=== PATIENT | male | born 1945 | race Caucasian/White ===

== ENCOUNTER 2017-12-17 11:50 | Emergency (ER) | payer MEDICARE, OTHER ==
[2017-12-17 11:58] VITALS: TEMP 98.6
[2017-12-17] MEDS ORDERED: KETOROLAC 30 MG/ML 1 ML VIAL IVP STA (12:18)
[2017-12-17] MEDS ORDERED: MORPHINE SULFATE 4MG/4ML SYRG IV STA (12:18)
[2017-12-17] MEDS ORDERED: DEXAMETHASONE SOD PHOSPHATE 10 MG/ML 1 ML VIAL IV STA (12:18)
[2017-12-17] MEDS ORDERED: SODIUM CHLORIDE 0.9% 1,000 ML IV STA (12:18)
[2017-12-17] MEDS ORDERED: diphenhydrAMINE 50 MG/ML 1 ML VIAL IVP STA ×2 (12:18→14:26)
[2017-12-17] MEDS ORDERED: SODIUM CHLORIDE 0.9% 500 ML IV STA (12:18)
[2017-12-17] MEDS ORDERED: RX INFO: IV CONTRAST WAS GIVEN 1 EACH MISC MISCELLANE PRN ×2 (12:19→14:30)
--- NOTE | 2017-12-17 12:22 | ED ---
General Adult HPI - General Chief complaint: Headache Stated complaint: Headache x' 3 weeks Time Seen by Provider: 12/17/17 12:08 Source: patient Mode of arrival: wheelchair Limitations: no limitations - History of Present Illness Initial comments: 72-year-old male presents for evaluation of headache. Patient was seen by his primary care physician, and instructed to present to the emergency department for evaluation and plan for CT with and without contrast. Patient has had headache for the past 2 weeks which has been severe. Gradual onset. Worse on the left frontal region. Patient does have chronic headache history, he has had tried brain injury and zygomatic reconstruction secondary to injuries in [place]. He does deal with headaches as well as peripheral neuropathy. He is currently taking Lyrica, he is prescribed [place] but chooses not to take this on a regular basis. He previously followed with neurology, however recently he has not seen a neurologist. Denies any fever or chills. No nausea vomiting. He does have some vision and photophobia. Headache is somewhat similar in character to his baseline headache although more severe. - Related Data Home Medications Medication Instructions Recorded Confirmed Aspirin EC [Ecotrin] 325 mg PO DAILY 12/17/17 12/17/17 Celecoxib [CeleBREX] 200 mg PO DAILY 12/17/17 12/17/17 Cyclobenzaprine [Flexeril] 10 mg PO DAILY 12/17/17 12/17/17 DULoxetine HCL [Cymbalta] 60 mg PO DAILY 12/17/17 12/17/17 Ezetimibe [Zetia] 10 mg PO DAILY 12/17/17 12/17/17 Levothyroxine Sodium [Synthroid] 50 mcg PO DAILY 12/17/17 12/17/17 Niacin 500 mg PO BID 12/17/17 12/17/17 [place]-3 Acid Ethyl Esters [Lovaza] 1 gm PO BID 12/17/17 12/17/17 Pregabalin [Lyrica] 150 mg PO BID 12/17/17 12/17/17 Rosuvastatin [Crestor] 10 mg PO DAILY 12/17/17 12/17/17 Ubidecarenone [Co Q-10] 300 mg PO DAILY 12/17/17 12/17/17 traZODone HCL 150 mg PO HS 12/17/17 12/17/17 Allergies Allergy/AdvReac Type Severity Reaction Status Date / Time No Known Allergies Allergy Verified 12/17/17 12:11 Review of Systems ROS Statement: Those systems with pertinent positive or pertinent negative responses have been documented in the HPI. ROS Other: All systems not noted in ROS Statement are negative. Past Medical History Past Medical History: Cancer, Myocardial Infarction (MT) Additional Past Medical History / Comment(s): 3 TBI's, skin cancer, prostate cancer, 3 MT's with stents, hernia, steel plate in head left zygomatic arch History of Any Multi-Drug Resistant Organisms: None Reported Past Surgical History: Coronary Bypass/CABG, Heart Catheterization With Stent, Hernia Repair, Prostate Surgery Additional Past Surgical History / Comment(s): right knee Past Psychological History: No Psychological Hx Reported Smoking Status: Never smoker Past Alcohol Use History: None Reported Past Drug Use History: None Reported General Exam Limitations: no limitations General appearance: alert, in no apparent distress, appears intoxicated Eye exam: Present: normal appearance, PERRL, EOMI ENT exam: Present: normal exam Neck exam: Present: normal inspection. Absent: tenderness, meningismus Respiratory exam: Present: normal lung sounds bilaterally. Absent: respiratory distress, wheezes Cardiovascular Exam: Present: regular rate, normal rhythm GI/Abdominal exam: Present: soft. Absent: distended, tenderness, guarding Extremities exam: Present: normal inspection, full ROM, normal capillary refill. Absent: calf tenderness Neurological exam: Present: alert, oriented X3, CN II-XII intact. Absent: motor sensory deficit Psychiatric exam: Present: normal affect, normal mood Skin exam: Present: warm, dry, intact. Absent: cyanosis, diaphoretic Course Vital Signs 12/17/17 12/17/17 12/17/17 11:53 14:25 16:00 Temperature 98.6 F Pulse Rate 69 64 66 Respiratory 18 16 16 Rate Blood Pressure 131/70 119/65 128/68 O2 Sat by Pulse 98 97 97 Oximetry - Reevaluation(s) Reevaluation #1: 12/17/17 16:04 On reevaluation, patient's headache is improved. Medical Decision Making - Medical Decision Making 72-year-old male with chronic headache, presents from outpatient office for evaluation of worsening headache. Patient is well-appearing, normal vital signs , nonfocal neurologic exam. Patient was instructed to present to the emergency department for concern of aneurysm. History is not consistent with aneurysmal bleed. However CT and CT angiography is obtained, brain CT shows chronic right occipital infarct with encephalomalacia. Patient has been told in the past that he has had a CVA. Patient is also concerned about some left eye pain and blurry vision, this does correspond with his right occipital infarct, intraocular pressures are checked just to be sure there is no component of glaucoma, right eye is 14, left eye is [address] angiography negative for aneurysmal change, no significant signs of stenosis. Patient given headache medication and on reevaluation is feeling better. He was previously seen by neurology for his chronic headaches, he will be given outpatient neurology follow-up. Return to the emergency department with worsening or changing headache. ESR and CRP are negative - Lab Data Result diagrams: 12/17/17 13:00 12/17/17 13:00 Lab Results 12/17/17 12/17/17 Range/Units 13:00 13:00 WBC 5.1 (3.8-10.6) k/uL RBC 4.92 (4.30-5.90) m/uL Hgb 15.3 (13.0-17.5) gm/dL Hct 45.5 (39.0-53.0) % MCV 92.4 (80.0-100.0) fL MCH 31.1 (25.0-35.0) pg MCHC 33.7 (31.0-37.0) g/dL RDW 12.7 (11.5-15.5) % Plt Count 239 (150-450) k/uL Neutrophils % 50 % Lymphocytes % 37 % Monocytes % 6 % Eosinophils % 2 % Basophils % 1 % Neutrophils # 2.5 (1.3-7.7) k/uL Lymphocytes # 1.9 (1.0-4.8) k/uL Monocytes # 0.3 (0-1.0) k/uL Eosinophils # 0.1 (0-0.7) k/uL Basophils # 0.0 (0-0.2) k/uL ESR 6 (0-15) mm/hr Sodium 145 (137-145) mmol/L Potassium 5.3 H (3.5-5.1) mmol/L Chloride 105 (98-107) mmol/L Carbon Dioxide 27 (22-30) mmol/L Anion Gap 13 mmol/L BUN 24 H (9-20) mg/dL Creatinine 0.70 (0.66-1.25) mg/dL Est GFR (CKD-EPI)AfAm >90 (>60 ml/min/1.73 sqM) Est GFR (CKD-EPI)NonAf >90 (>60 ml/min/1.73 sqM) Glucose 90 (74-99) mg/dL Calcium 10.0 (8.4-10.2) mg/dL Total Bilirubin 0.5 (0.2-1.3) mg/dL AST 32 (17-59) U/L ALT 35 (21-72) U/L Alkaline Phosphatase 59 (38-126) U/L C-Reactive Protein <5.0 (<10.0) mg/L Total Protein 7.0 (6.3-8.2) g/dL Albumin 4.4 (3.5-5.0) g/dL Disposition Clinical Impression: Headache Disposition: HOME SELF-CARE Instructions: Migraine Headache (ED) Referrals: Callie Alcaraz DO [REFERRING] - 1-2 days Xiomara Felix MD [STAFF PHYSICIAN] - 1-2 days Time of Disposition: 16:07
[2017-12-17 13:12] LABS: Basophils % (A) 1 %; Eosinophils # (A) 0.1 k/uL (0-0.7); Eosinophils % (A) 2 %; HCT 45.5 % (39.0-53.0); HGB 15.3 gm/dL (13.0-17.5); Lymphocytes # (A) 1.9 k/uL (1.0-4.8); Lymphocytes % (A) 37 %; MCH 31.1 pg (25.0-35.0); MCHC 33.7 g/dL (31.0-37.0); MCV 92.4 fL (80.0-100.0); Mean Platelet Volume 7.6; Monocytes # (A) 0.3 k/uL (0-1.0); Monocytes % (A) 6 %; Neutrophils # (A) 2.5 k/uL (1.3-7.7); Neutrophils % (A) 50 %; Platelet Count 239 k/uL (150-450); RBC 4.92 m/uL (4.30-5.90); RDW 12.7 % (11.5-15.5); WBC 5.1 k/uL (3.8-10.6)
[2017-12-17 13:24] LABS: ALT 35 U/L (21-72); AST 32 U/L (17-59); Albumin 4.4 g/dL (3.5-5.0); Alkaline Phosphatase 59 U/L (38-126); Anion Gap 13 mmol/L; Blood Urea Nitrogen 24 mg/dL (9-20); C Reactive Protein <5.0 mg/L (<10.0); Carbon Dioxide 27 mmol/L (22-30); Chloride 105 mmol/L (98-107); Glucose 90 mg/dL (74-99); Potassium 5.3 mmol/L (3.5-5.1); Sodium 145 mmol/L (137-145); Total Bilirubin 0.5 mg/dL (0.2-1.3)
[2017-12-17 14:01] LABS: Erythrocyte Sedimentation Rate 6 mm/hr (0-15)
[2017-12-17 14:26] VITALS: RESP 16
[2017-12-17] MEDS ORDERED: METOCLOPRAMIDE 5 MG/ML 2 ML VIAL IVP STA (14:26)
[2017-12-17] MEDS ORDERED: fentaNYL (PF) 50 MCG/ML 2 ML AMP IVP STA (14:27)
--- NOTE | 2017-12-17 15:17 | CT ---
EXAMINATION TYPE: CT brain wo con DATE OF EXAM: 12/17/2017 COMPARISON: NONE HISTORY: headache x3 weeks CT DLP: 1145.54 mGycm Automated exposure control for dose reduction was used. Helical imaging through the brain FINDINGS: There is no hemorrhage or hydrocephalus present. Encephalomalacia present in the medial aspect of the right occipital lobe is compatible with chronic infarct. Calvarium is intact. Inflammatory changes p resent within the maxillary sinus on the right. IMPRESSION: SINUS DISEASE. CHRONIC RIGHT OCCIPITAL INFARCT. NO ACUTE BRAIN ABNORMALITY.
[2017-12-17] MEDS ORDERED: PROPARACAINE 0.5% OPHTH DROPS 15 ML BTL BOTH EYES STA (15:23)
--- NOTE | 2017-12-17 15:47 | CT ---
EXAMINATION TYPE: CT angio head neck DATE OF EXAM: 12/17/2017 HISTORY: headache x3 weeks COMPARISON: CT head earlier today. CT DLP: 459.62 mGycm. Automated Exposure Control for Dose Reduction was Utilized. TECHNIQUE: CTA scan of the neck is performed with IV Contrast, patient injected with 65 mL of Isovue 370, axial images are obtained, coronal and sagittal reformatted images are reviewed. Three-D recons tructed images are created on an independent workstation and reviewed. FINDINGS: Carotid/Vascular Structures: There is partial visualization of sternal wires and mediastinal clips fr om CABG procedure. There is normal three-vessel origin from aortic arch. There is no significant plaq ue or stenosis in brachiocephalic or subclavian arteries bilaterally. The right common carotid artery shows normal origin from right brachiocephalic artery. There is moderate peripheral mixed plaque at right carotid bulb without significant stenosis identified. There is mild calcified plaque extending into proximal internal carotid artery. No significant stenosis in common or internal carotid arteries is present bilaterally. There is fairly moderate calcified peripheral plaque at left carotid bulb. There is no significant st enosis in left common or internal carotid arteries There is codominant vertebral basilar system. Vertebral arteries are patent to basilar junction. Ther e are patent posterior communicating arteries felt present bilaterally. No aneurysmal change or signi ficant stenosis is seen. There is short segment but believed patent anterior communicating artery. No significant focal stenosis or aneurysmal change is seen. Other: There is fairly moderate multilevel spurring in the cervical spine. There is multilevel uncove rtebral facet arthropathy identified. There is borderline enlarged 1.2 x 0.9 cm anterior superior mediastinal lymph node axial image 114. There is persistent vague area of low-attenuation consistent with age-indeterminate infarct right occ ipital region axial image 27. There is small caliber right maxillary sinus with moderate eccentric mucosal thickening. IMPRESSION: 1. No significant stenosis in common or internal carotid arteries bilaterally. Mild to moderate carot id bulb plaque is present. 2. No aneurysmal change at level of [place].
[2017-12-17 16:01] VITALS: BP 128/68; PULSE 66
== END 2017-12-17 16:30 | disposition home or self-care (01) ==
LOC: EC 11:50 → EEVIPCON 11:50 → EC 16:30
DX: R51 Headache (principal); H53.149 Visual discomfort, unspecified; G93.89 Other specified disorders of brain; H57.12 Ocular pain, left eye; H53.8 Other visual disturbances; I25.2 Old myocardial infarction; Z85.828 Personal history of other malignant neoplasm of skin; Z85.46 Personal history of malignant neoplasm of prostate; Z79.82 Long term (current) use of aspirin; Z79.899 Other long term (current) drug therapy
CPT/HCPCS: 36415; 80053; 85652; 85025; 86140; 70496; 70450; 70498; 99284; 96374; 96375 ×5; 96376; 96361; J1200; J1100; J2765; J3010; J1885; Q9967; J2270

== ENCOUNTER → 2018-03-10 | Outpatient (CLI) | payer MEDICARE, OTHER ==
[2018-03-06 16:24] VITALS: BMI 30.5
[2018-03-10 13:39] VITALS: BP 113/70; PULSE 75; RESP 18
--- NOTE | 2018-03-19 12:41 | P.PAINCN ---
History of Present Illness - Reason for Consult Consult date: 03/10/18 - Chief Complaint Low back pain - History of Present Illness This is a 72-year-old patient referred by neurologist for chronic pain in lumbar spine with radiation to bilateral lower extremities. Patient states that pain began over 5 years ago for reasons he cannot identify, pain is 7/10 in severity and describes it as throbbing aching, and shooting into his bilateral lower extremities. Patient states that walking for long distances, standing, and is even minimal activity exacerbate his low back pain. With regards to his radicular signs and symptoms, he states that he gets shooting pains into his bilateral lower extremities into the back of his calves multiple times a day that he describes as painful and at times debilitating. Patient denies adverse drug effects from medications. Patient also denies new-onset weakness, bowel/bladder incontinence, or any other signs or symptoms of cauda equina syndrome. There are no signs of acute intoxication, and no indications of medication diversion or overuse. Patient does not have an MRI, or lumbar spine x-rays to be reviewed. Patient has not had surgery. Patient has not had injections previously. Patient has not had physical therapy recently. In addition to above, 13-point review of systems is also negative for chest pain , shortness of breath, changes in vision, changes in hearing, new onset weakness , abdominal pain, diarrhea, extreme fatigue, malaise, fever, skin changes, homicidal or suicidal ideation, or bowel or bladder incontinence. Vital Signs: Reviewed in EMR Gen: WDWN, AAOx3, NAD HEENT: NCAT, EOMI, hearing grossly normal Pulm: resp unlabored Abd: soft, NT, ND Neck: supple, trachea midline ROM in flexion cervical spine: Normal ROM in extension cervical spine: Normal Cervical paravertebral tenderness: Normal Cervical Facet tenderness: Negative Spurling's: Negative bilateral Upper extremity: decreased lockstitch sleeve maker strength, decreased shoulder abduction ROM, and decreased elbow flexion/extension secondary to pain ROM in flexion lumbar spine: Limited ROM in extension lumbar spine: Limited Lumbar paravertebral tenderness: Tenderness to palpation appreciated Facet loading: Positive bilateral L4 and L5 SI joint tenderness: Negative Niels's test: Negative Straight leg raise: Positive bilateral 45 Lower extremity: decreased ROM dorsiflexion/plantarflexion strength, hip flexion/extension, and knee flexion/extension secondary to pain Neuro: CN II-XII grossly intact, muscle strength lower extremities PRESERVED Assessment: 1. Lumbar radiculopathy 2. Lumbar spondylosis without myelopathy 3. Lumbar degenerative disc disease Plan: 1. Explanation: Opioid and psychological risk scores were reviewed. Diagnoses , prognoses, and multiple treatment options including but not limited to physical therapy, interventional therapies, adjuvant medical therapies, narcotic medication therapies, and surgery were discussed with the patient and all questions were answered to the patient's satisfaction. 2. Opioid agreement: Patient signed narcotic agreement, and was orally counseled to not overuse, abuse, divert, or cell medications, and to take them as prescribed by only 1 healthcare provider. The patient was also counseled to take medications as prescribed by only 1 healthcare provider and to store opioid medications in the safe and preferably locked location. Patient was also counseled against driving or operating heavy equipment while using narcotic medications and also not use alcohol or any illicit or recreational drugs. The patient verbalized understanding that lack of compliance with any of the above and likely result in failure to renew narcotic prescriptions, possible discharge from the clinic, and possible legal ramifications thereafter if indicated. 3. Counseling: The patient was counseled extensively on SMOKING CESSATION, BODY MASS INDEX, EXERCISE. Specifically, the patient was instructed regarding the importance of smoking cessation, weight control, and exercise in the context of both chronic pain and overall health. 4. Procedures: Lumbar epidural steroid injection in 1 week 5. Consultations: No consultation at this time 6. Investigations: As reviewed and appropriate with patient history 7. Medications: No medications at this time 8. Disposition: Lumbar epidural steroid injection 1 week PQRS measures: 1-Patient's medications are documented in the chart. 2-Tobacco use is positive/negative, counseling given 3-Patient has not had a pneumococcal vaccine. 4-Advanced care planning discussed, patient unable to give. 5-Opioid contract signed with the patient. 6-Pain positive, follow-up visit or procedure scheduled 7-Patient's blood pressure measured and documented, and patient will follow up with the primary care due to hypertension. 8-Patient's weight was measured, and body mass index above the normal limits, and counseling was done. Patient instructed to follow up with PCP. 9-Patient was not identified as an unhealthy alcohol user. Past Medical History Past Medical History: Cancer, Hearing Disorder / Deafness, Myocardial Infarction (VT), Musculoskeletal Disorder, Osteoarthritis (OA), Thyroid Disorder Additional Past Medical History / Comment(s): 3 TBI's, skin cancer, prostate cancer, 3 VT's with stents, steel plate in head left zygomatic arch, peripheral neuropathy, DDD, mostly deaf even w/hearing aids Last Myocardial Infarction Date:: unknown History of Any Multi-Drug Resistant Organisms: None Reported Past Surgical History: Coronary Bypass/CABG, Heart Catheterization With Stent, Hernia Repair, Prostate Surgery Additional Past Surgical History / Comment(s): arthroscopy right knee, 5 way bypass 2003, prostatectomy 2006 Past Anesthesia/Blood Transfusion Reactions: No Reported Reaction, Blood Transfusion Reaction Additional Past Anesthesia/Blood Transfusion Reaction / Comm: high ammonia levels after transfusion-had tx. for Date of Last Stent Placement:: unknown Smoking Status: Never smoker - Past Family History Mother Family Medical History: No Reported History Medications and Allergies Home Medications Medication Instructions Recorded Confirmed Type Aspirin EC [Ecotrin] 325 mg PO DAILY 12/17/17 03/18/18 History Celecoxib [CeleBREX] 200 mg PO DAILY 12/17/17 03/18/18 History Cyclobenzaprine [Flexeril] 10 mg PO HS 12/17/17 03/18/18 History DULoxetine HCL [Cymbalta] 60 mg PO DAILY 12/17/17 03/18/18 History Ezetimibe [Zetia] 10 mg PO MOWEFR 12/17/17 03/18/18 History Levothyroxine Sodium [Synthroid] 50 mcg PO HS 12/17/17 03/18/18 History [place]-3 Acid Ethyl Esters [Lovaza] 1 gm PO BID 12/17/17 03/18/18 History Pregabalin [Lyrica] 150 mg PO BID 12/17/17 03/18/18 History Rosuvastatin [Crestor] 10 mg PO DAILY 12/17/17 03/18/18 History Ubidecarenone [Co Q-10] 200 mg PO DAILY 12/17/17 03/18/18 History traZODone HCL 150 mg PO HS 12/17/17 03/18/18 History Cholecalciferol [Vitamin D3] 1,000 unit PO DAILY 03/06/18 03/18/18 History Cinnamon Bark [Cinnamon] 500 mg PO DAILY 03/06/18 03/18/18 History Folic Acid 1 mg PO DAILY 03/06/18 03/18/18 History Garlic 1 each PO DAILY 03/06/18 03/18/18 History Magnesium 400 mg PO DAILY 03/06/18 03/18/18 History Turmeric Root Extract [Turmeric] 400 mg PO DAILY 03/06/18 03/18/18 History Vitamin B Complex 1 each PO DAILY 03/06/18 03/18/18 History Docusate [Colace] 100 mg PO DAILY 03/16/18 03/18/18 History HYDROcodone/APAP 10-325MG [[place] 1 tab PO TID PRN 03/16/18 03/18/18 History 10-325] Polyethylene Glycol 3350 [Miralax] 17 gm PO DAILY 03/16/18 03/18/18 History Allergies Allergy/AdvReac Type Severity Reaction Status Date / Time No Known Allergies Allergy Verified 03/18/18 07:44 PQRS Measure Charge Sheet PQRS Narrative: Smoking Status Never smoker Do You Want the Pneumonia Yes Vaccine AT THIS TIME? Blood Pressure 113/70 Pain Intensity [Generalized] 10 Scale Used Numeric (1 - 10) Hx Alcohol Use (MH) No Home Medications: Ambulatory Orders Aspirin EC [Ecotrin] 325 mg PO DAILY 12/17/17 Celecoxib [CeleBREX] 200 mg PO DAILY 12/17/17 Cyclobenzaprine [Flexeril] 10 mg PO HS 12/17/17 DULoxetine HCL [Cymbalta] 60 mg PO DAILY 12/17/17 Ezetimibe [Zetia] 10 mg PO MOWEFR 12/17/17 Levothyroxine Sodium [Synthroid] 50 mcg PO HS 12/17/17 [place]-3 Acid Ethyl Esters [Lovaza] 1 gm PO BID 12/17/17 Pregabalin [Lyrica] 150 mg PO BID 12/17/17 Rosuvastatin [Crestor] 10 mg PO DAILY 12/17/17 Ubidecarenone [Co Q-10] 200 mg PO DAILY 12/17/17 traZODone HCL 150 mg PO HS 12/17/17 Cholecalciferol [Vitamin D3] 1,000 unit PO DAILY 03/06/18 Cinnamon Bark [Cinnamon] 500 mg PO DAILY 03/06/18 Folic Acid 1 mg PO DAILY 03/06/18 Garlic 1 each PO DAILY 03/06/18 Magnesium 400 mg PO DAILY 03/06/18 Turmeric Root Extract [Turmeric] 400 mg PO DAILY 03/06/18 Vitamin B Complex 1 each PO DAILY 03/06/18 Docusate [Colace] 100 mg PO DAILY 03/16/18 HYDROcodone/APAP 10-325MG [[place] 10-325] 1 tab PO TID PRN 03/16/18 Polyethylene Glycol 3350 [Miralax] 17 gm PO DAILY 03/16/18
== END | disposition home or self-care (01) ==
LOC: PNWHC3 12:06
PROVIDERS: ATTEND Anesthesiology
DX: M51.16 Intervertebral disc disorders with radiculopathy, lumbar region (principal); M47.26 Other spondylosis with radiculopathy, lumbar region; I25.2 Old myocardial infarction; M19.90 Unspecified osteoarthritis, unspecified site; Z95.1 Presence of aortocoronary bypass graft; Z79.82 Long term (current) use of aspirin; Z79.1 Long term (current) use of non-steroidal anti-inflammatories (NSAID); Z79.899 Other long term (current) drug therapy; Z98.890 Other specified postprocedural states
CPT/HCPCS: 99211

== ENCOUNTER 2018-03-18 06:29 | Day surgery (SDC) | payer OTHER ==
[2018-03-16 16:38] VITALS: BMI 29.8
[~2018-03-18 06:29] MED LIST: LACTATED RINGERS 1,000 ML IV SCH
[2018-03-18 07:35] VITALS: RESP 16; TEMP 98.1
[2018-03-18] MEDS ORDERED: LIDOCAINE 1% 20 ML VIAL (10MG/ML) FOR IV START INTRADERMA ONE (08:01)
--- NOTE | 2018-03-18 08:28 | P.PCN ---
Date of Procedure: 03/18/18 Procedure(s) Performed: PREOPERATIVE DIAGNOSIS: 1- Lumbar Degenerative Disc Diseases 2-Lumbar spinal stenosis POSTOPERATIVE DIAGNOSIS: 1-Lumber Degenerative Disc Diseases 2-Lumbar spinal stenosis PROCEDURE 1. Lumbar epidural steroid injection under fluoroscopic guidance at the L4-5 level. 2. Lumbar epidurogram. ANESTHESIA: Local with 1% lidocaine 3 ml and , moderate sedation with intravenous Versed 2 mg ,and fentanyle 100 Mcg EBL: Minimal PROCEDURE INDICATION: The patient with low back pain and radiculitis symptoms unresponsive to conservative treatment. Fluoroscopy was used to optimize visualization of the needle placement and to maximize safety. PROCEDURE DESCRIPTION / TECHNIQUE: The patient was seen and identified in the preoperative area. Risks, benefits , complications including but not limited to infections ,bleeding ,allergic reaction to the medications ,nerve damage and not complete pain releife , and alternatives were discussed with the patient. The patient agreed to proceed with the procedure and signed the consent. IV was started, and vital signs were stable. Patient was taken to the OR and time out was completed. The patient was placed in the prone position on procedure table and a pillow was placed under the abdomen to reduce lumbar lordosis. The lumbosacral area was prepped and draped in the usual sterile fashion.ere closely monitored during the procedure. Conscious sedation was used during the procedure to decrease patients anxiety. Vital signs was monitered during the entire procedure. Using anterior-posterior fluoroscopy, the L4-5 interlaminar space was identified and the skin over this site was marked and then infiltrated with 1% lidocaine subcutaneously. Subsequently, a 20-gauge Tuohy epidural needle was inserted and advanced toward the epidural space using the ``Loss of resistance technique and guided by AP and lateral fluoroscopy. The correct needle position in the epidural space was verified with the injection of 2 mL of the water soluble contrast dye Isovue 200 contrast and observing an excellent epidurogram with the epidural spread of the dye, after negative aspiration for blood and CSF and in the absence of paresthesias. Again after negative aspiration, a 6 ml mixture containing 80 mg Depo-Medrol, and 2 ml of preservative free Normal Saline, and 2 ml of preservative free lidocaine 1% solution was injected and a washout of epidurogram was seen. Needle was withdrawn intact, skin was cleansed, and bandages were applied. COMPLICATIONS: None DISPOSITION / PLANS: The patient was placed in a supine position and transferred to the recovery area in a stable condition for observation. There was no evidence of lower extremity motor or sensory deficit after the procedure. Patient was discharged from the recovery room after meeting discharge criteria. Home discharge instructions were given to the patient by the staff. The patient was reexamined prior to discharge. The patient will schedule a follow up in the clinic in 2-4 weeks.
[2018-03-18] MEDS ORDERED: IV FLUID CONTINUATION 1,000 ML IV ONE (08:35)
[2018-03-18 09:08] VITALS: BP 134/83; PULSE 64
--- NOTE | 2018-03-18 10:36 | FL ---
Fluoroscopy HISTORY: Pain 1 seconds fluoroscopy time supplied to the referring clinician. 1 intraoperative C-arm images docume nt the procedure. See dictated report from anesthesia.
== END 2018-03-18 09:40 | disposition home or self-care (01) ==
LOC: ORPAIN 06:29
PROVIDERS: ATTEND Specialist
DX: M51.36 Other intervertebral disc degeneration, lumbar region (principal); M48.061 Spinal stenosis, lumbar region without neurogenic claudication; Z95.1 Presence of aortocoronary bypass graft; Z79.899 Other long term (current) drug therapy
CPT/HCPCS: 62323; J2250; J1030; J3010; Q9966

== ENCOUNTER 2018-04-02 09:23 | Day surgery (SDC) | payer OTHER ==
[2018-03-27 15:38] VITALS: BMI 29.8
[2018-04-02 11:02] VITALS: RESP 20; TEMP 98
--- NOTE | 2018-04-02 11:14 | P.PCN ---
Date of Procedure: 04/02/18 Surgeon: Vikash Allan Description of Procedure: PREOPERATIVE DIAGNOSIS: Lumbar spinal stenosis, bilateral lumbar radiculopathy POSTOPERATIVE DIAGNOSIS: Same PROCEDURE Lumbar epidural steroid injection under fluoroscopic guidance at the L4 5 level. ANESTHESIA: Local with 1% lidocaine 3 ml and IV sedation with Versed 2 mg EBL: Minimal PROCEDURE INDICATION: This is a very pleasant 72-year-old gentleman with a history of bilateral lumbar radicular pain secondary to lumbar spinal stenosis presents today for repeat of lumbar epidural steroid injection. This is his second injection. He reports that he received significant benefit from his first injection although he does still have symptoms. PROCEDURE DESCRIPTION / TECHNIQUE: The patient was seen and identified in the preoperative area. Risks, benefits , complications including but not limited to infections ,bleeding ,allergic reaction to the medications ,nerve damage and not complete pain relief , and alternatives were discussed with the patient. The patient agreed to proceed with the procedure and signed the consent. IV was started, and vital signs were stable. Patient was taken to the OR and time out was completed. The patient was placed in the prone position on procedure table and a pillow was placed under the abdomen to reduce lumbar lordosis. The lumbosacral area was prepped and draped in the usual sterile fashion.ere closely monitored during the procedure. Conscious sedation was used during the procedure to decrease patients anxiety. Vital signs was monitered during the entire procedure. Using anterior-posterior fluoroscopy, the L4 5 interlaminar space was identified and the skin over this site was marked and then infiltrated with 1% lidocaine subcutaneously. Subsequently, a 20-gauge Tuohy epidural needle was inserted and advanced toward the epidural space using the Loss of resistance technique and guided by AP and lateral fluoroscopy. The correct needle position in the epidural space was verified with the injection of contrast and observing an excellent epidurogram with the epidural spread of the dye, after negative aspiration for blood and CSF and in the absence of paresthesias. Again after negative aspiration, a solution containing 80 mg of Depo-Medrol and 3 mL of preservative free normal saline was injected and a washout of epidurogram was seen. Needle was withdrawn intact, skin was cleansed, and bandages were applied. COMPLICATIONS: None DISPOSITION / PLANS: The patient was placed in a supine position and transferred to the recovery area in a stable condition for observation. There was no evidence of lower extremity motor or sensory deficit after the procedure. Patient was discharged from the recovery room after meeting discharge criteria. Home discharge instructions were given to the patient by the staff. The patient was reexamined prior to discharge. The patient will schedule a follow up in the clinic in 2-4 weeks.
--- NOTE | 2018-04-02 11:35 | FL ---
EXAMINATION TYPE: FL guided pain mgmt statistic DATE OF EXAM: 04/02/2018 HISTORY: Flouroscopy time 1 seconds of fluoroscopy provided. IMPRESSION: 1. Fluoroscopy time.
[2018-04-02 11:49] VITALS: BP 157/74; PULSE 69
== END 2018-04-02 12:00 | disposition home or self-care (01) ==
LOC: ORPAIN 09:23
PROVIDERS: ATTEND Pain Medicine Pain Medicine
DX: M54.16 Radiculopathy, lumbar region (principal); M48.061 Spinal stenosis, lumbar region without neurogenic claudication; I25.2 Old myocardial infarction; H91.90 Unspecified hearing loss, unspecified ear; Z95.1 Presence of aortocoronary bypass graft; Z95.5 Presence of coronary angioplasty implant and graft
CPT/HCPCS: 62323; J1030

== ENCOUNTER → 2018-04-29 | Outpatient (CLI) | payer OTHER ==
--- NOTE | 2018-04-29 12:42 | P.PN ---
Progress Note - Text Progress Note Date: 04/29/18 This is a 72-year-old patient returns for follow-up visit status post lumbar epidural steroid injection 2. chief complaint is chronic pain in lumbar spine with radiation to bilateral lower extremities. Patient noted significant improvement after second epidural steroid injection. VAS decreased by greater than 80%. Stated that it benefited him for 4-5 weeks. Discussed repeating the epidural injection with the patient is baseline pain level is ready decreased from original 10 to now about a 5/10 patient still has complaints of radicular symptoms down to the bottom of his feet bilaterally. Patient also denies new-onset weakness, bowel/bladder incontinence, or any other signs or symptoms of cauda equina syndrome. There are no signs of acute intoxication, and no indications of medication diversion or overuse. In addition to above, 13-point review of systems is also negative for chest pain , shortness of breath, changes in vision, changes in hearing, new onset weakness , abdominal pain, diarrhea, extreme fatigue, malaise, fever, skin changes, homicidal or suicidal ideation, or bowel or bladder incontinence. Vital Signs: Reviewed in EMR Gen: WDWN, AAOx3, NAD HEENT: NCAT, EOMI, hearing grossly normal Pulm: resp unlabored Abd: soft, NT, ND Neck: supple, trachea midline ROM in flexion cervical spine: Normal ROM in extension cervical spine: Normal Cervical paravertebral tenderness: Normal Cervical Facet tenderness: Negative Spurling's: Negative bilateral Upper extremity: decreased welt sole layer strength, decreased shoulder abduction ROM, and decreased elbow flexion/extension secondary to pain ROM in flexion lumbar spine: Limited ROM in extension lumbar spine: Limited Lumbar paravertebral tenderness: Tenderness to palpation appreciated Facet loading: Positive bilateral L4 and L5 SI joint tenderness: Negative Niels's test: Negative Straight leg raise: Positive bilateral 45 Lower extremity: decreased ROM dorsiflexion/plantarflexion strength, hip flexion/extension, and knee flexion/extension secondary to pain Neuro: CN II-XII grossly intact, muscle strength lower extremities PRESERVED Assessment: 1. Lumbar radiculopathy 2. Lumbar spondylosis without myelopathy 3. Lumbar degenerative disc disease Plan: 1. Explanation: Opioid and psychological risk scores were reviewed. Diagnoses , prognoses, and multiple treatment options including but not limited to physical therapy, interventional therapies, adjuvant medical therapies, narcotic medication therapies, and surgery were discussed with the patient and all questions were answered to the patient's satisfaction. 2. Opioid agreement: No opiates prescribed 3. Counseling: The patient was counseled extensively on SMOKING CESSATION, BODY MASS INDEX, EXERCISE. Specifically, the patient was instructed regarding the importance of smoking cessation, weight control, and exercise in the context of both chronic pain and overall health. 4. Procedures: Lumbar epidural steroid injection in #3 5. Consultations: No consultation at this time 6. Investigations: As reviewed and appropriate with patient history 7. Medications: No medications at this time 8. Disposition: Lumbar epidural steroid injection #3 PQRS measures: 1-Patient's medications are documented in the chart. 2-Tobacco use is positive/negative, counseling given 3-Patient has not had a pneumococcal vaccine. 4-Advanced care planning discussed, patient unable to give. 5-Opioid contract signed with the patient. 6-Pain positive, follow-up visit or procedure scheduled 7-Patient's blood pressure measured and documented, and patient will follow up with the primary care due to hypertension. 8-Patient's weight was measured, and body mass index above the normal limits, and counseling was done. Patient instructed to follow up with PCP. 9-Patient was not identified as an unhealthy alcohol user.
[2018-04-29 12:55] VITALS: BP 137/73; PULSE 93; RESP 18; TEMP 98
== END | disposition home or self-care (01) ==
LOC: PNWHC3 12:03
PROVIDERS: ATTEND Anesthesiology
DX: M51.16 Intervertebral disc disorders with radiculopathy, lumbar region (principal); M47.26 Other spondylosis with radiculopathy, lumbar region
CPT/HCPCS: 99211

== ENCOUNTER 2018-04-30 08:30 | Day surgery (SDC) | payer OTHER ==
[2018-04-30 07:55] VITALS: TEMP 98
[~2018-04-30 08:30] MED LIST changes: +LACTATED RINGERS 1,000 ML IV ONE; -LACTATED RINGERS 1,000 ML IV SCH
--- NOTE | 2018-04-30 09:03 | P.PCN ---
Date of Procedure: 04/30/18 Procedure(s) Performed: PREOPERATIVE DIAGNOSIS: 1-lumbar radiculopathy. 2-lumbar spinal stenosis POSTOPERATIVE DIAGNOSIS:same as preoperative diagnosis PROCEDURE 1. Lumbar epidural steroid injection under fluoroscopic guidance at the L4-5 level. 2. Lumbar epidurogram. ANESTHESIA: Local with 1% lidocaine 3 ml and , moderate sedation with intravenous Versed 2 mg . EBL: Minimal PROCEDURE INDICATION: The patient with low back pain and radiculitis symptoms unresponsive to conservative treatment. Fluoroscopy was used to optimize visualization of the needle placement and to maximize safety. PROCEDURE DESCRIPTION / TECHNIQUE: The patient was seen and identified in the preoperative area. Risks, benefits , complications including but not limited to infections ,bleeding ,allergic reaction to the medications ,nerve damage and not complete pain releife , and alternatives were discussed with the patient. The patient agreed to proceed with the procedure and signed the consent. IV was started, and vital signs were stable. Patient was taken to the OR and time out was completed. The patient was placed in the prone position on procedure table and a pillow was placed under the abdomen to reduce lumbar lordosis. The lumbosacral area was prepped and draped in the usual sterile fashion.ere closely monitored during the procedure. Conscious sedation was used during the procedure to decrease patients anxiety. Vital signs was monitered during the entire procedure. Using anterior-posterior fluoroscopy, the L4-5 interlaminar space was identified and the skin over this site was marked and then infiltrated with 1% lidocaine subcutaneously. Subsequently, a 20-gauge Tuohy epidural needle was inserted and advanced toward the epidural space using the ``Loss of resistance technique and guided by AP and lateral fluoroscopy. The correct needle position in the epidural space was verified with the injection of 2 mL of the water soluble contrast dye Isovue 200 contrast and observing an excellent epidurogram with the epidural spread of the dye, after negative aspiration for blood and CSF and in the absence of paresthesias. Again after negative aspiration, a 6 ml mixture containing 80 mg Depo-Medrole, and 2 ml of preservative free Normal Saline, and 2 ml of preservative free lidocaine 1% solution was injected and a washout of epidurogram was seen. Needle was withdrawn intact, skin was cleansed, and bandages were applied. COMPLICATIONS: None DISPOSITION / PLANS: The patient was placed in a supine position and transferred to the recovery area in a stable condition for observation. There was no evidence of lower extremity motor or sensory deficit after the procedure. Patient was discharged from the recovery room after meeting discharge criteria. Home discharge instructions were given to the patient by the staff. The patient was reexamined prior to discharge. The patient will schedule a follow up in the clinic in 2-4 weeks.
[2018-04-30 09:11] VITALS: BP 160/78; PULSE 78; RESP 18
[2018-04-30] MEDS ORDERED: IV FLUID CONTINUATION 1,000 ML IV ONE (09:12)
--- NOTE | 2018-04-30 09:56 | FL ---
EXAMINATION TYPE: FL guided pain mgmt statistic DATE OF EXAM: 04/30/2018 HISTORY: Flouroscopy time 9 seconds of fluoroscopy provided. IMPRESSION: 1. Fluoroscopy time.
== END 2018-04-30 10:30 | disposition home or self-care (01) ==
LOC: ORPAIN 08:30
PROVIDERS: ATTEND Specialist
DX: G89.29 Other chronic pain (principal); M51.16 Intervertebral disc disorders with radiculopathy, lumbar region; M47.26 Other spondylosis with radiculopathy, lumbar region; M48.061 Spinal stenosis, lumbar region without neurogenic claudication
CPT/HCPCS: 62323; J2250; J1030; Q9966

== ENCOUNTER 2018-05-26 08:27 | Day surgery (SDC) | payer OTHER ==
[2018-05-21 15:32] VITALS: BMI 30.5
[~2018-05-26 08:27] MED LIST changes: -LACTATED RINGERS 1,000 ML IV ONE; +LACTATED RINGERS 1,000 ML IV SCH
[2018-05-26 10:57] VITALS: RESP 18; TEMP 97.2
[2018-05-26] MEDS ORDERED: LIDOCAINE 1% 20 ML VIAL (10MG/ML) FOR IV START INTRADERMA ONE (11:46)
--- NOTE | 2018-05-26 12:18 | P.PCN ---
Date of Procedure: 05/26/18 Procedure(s) Performed: PREOPERATIVE DIAGNOSIS: 1-lumbar radiculopathy. 2-lumbar spinal stenosis POSTOPERATIVE DIAGNOSIS: Same as preoperative diagnoses . PROCEDURE 1. Lumbar epidural steroid injection under fluoroscopic guidance at the L4-5 level. 2. Lumbar epidurogram. ANESTHESIA: Local with 1% lidocaine 3 ml and , moderate sedation with intravenous Versed 2 mg , EBL: Minimal PROCEDURE INDICATION: The patient with low back pain and radiculitis symptoms unresponsive to conservative treatment. Fluoroscopy was used to optimize visualization of the needle placement and to maximize safety. PROCEDURE DESCRIPTION / TECHNIQUE: The patient was seen and identified in the preoperative area. Risks, benefits , complications including but not limited to infections ,bleeding ,allergic reaction to the medications ,nerve damage and not complete pain releife , and alternatives were discussed with the patient. The patient agreed to proceed with the procedure and signed the consent. IV was started, and vital signs were stable. Patient was taken to the OR and time out was completed. The patient was placed in the prone position on procedure table and a pillow was placed under the abdomen to reduce lumbar lordosis. The lumbosacral area was prepped and draped in the usual sterile fashion.ere closely monitored during the procedure. Conscious sedation was used during the procedure to decrease patients anxiety. Vital signs was monitered during the entire procedure. Using anterior-posterior fluoroscopy, the L4-5 interlaminar space was identified and the skin over this site was marked and then infiltrated with 1% lidocaine subcutaneously. Subsequently, a 20-gauge Tuohy epidural needle was inserted and advanced toward the epidural space using the ``Loss of resistance technique and guided by AP and lateral fluoroscopy. The correct needle position in the epidural space was verified with the injection of 2 mL of the water soluble contrast dye Isovue 200 contrast and observing an excellent epidurogram with the epidural spread of the dye, after negative aspiration for blood and CSF and in the absence of paresthesias. Again after negative aspiration, a 6 ml mixture containing 20 mg of Dexamethasone and 2 ml of preservative free Normal Saline, and 2 ml of preservative free lidocaine 1% solution was injected and a washout of epidurogram was seen. Needle was withdrawn intact, skin was cleansed, and bandages were applied. COMPLICATIONS: None DISPOSITION / PLANS: The patient was placed in a supine position and transferred to the recovery area in a stable condition for observation. There was no evidence of lower extremity motor or sensory deficit after the procedure. Patient was discharged from the recovery room after meeting discharge criteria. Home discharge instructions were given to the patient by the staff. The patient was reexamined prior to discharge. The patient will schedule a follow up in the clinic in 2-4 weeks.
[2018-05-26] MEDS ORDERED: IV FLUID CONTINUATION 1,000 ML IV ONE (12:22)
--- NOTE | 2018-05-26 12:27 | FL ---
EXAMINATION TYPE: FL guided pain mgmt statistic DATE OF EXAM: 05/26/2018 HISTORY: Flouroscopy time 5 seconds of fluoroscopy provided. IMPRESSION: 1. Fluoroscopy time.
[2018-05-26 12:43] VITALS: BP 138/77; PULSE 68
== END 2018-05-26 13:02 | disposition home or self-care (01) ==
LOC: ORPAIN 08:27
PROVIDERS: ATTEND Specialist
DX: M51.16 Intervertebral disc disorders with radiculopathy, lumbar region (principal); M48.061 Spinal stenosis, lumbar region without neurogenic claudication; I25.10 Atherosclerotic heart disease of native coronary artery without angina pectoris
CPT/HCPCS: 62323; J2250

== ENCOUNTER → 2018-06-24 | Outpatient (CLI) | payer OTHER ==
[2018-06-24 14:01] VITALS: BP 141/92; PULSE 77; RESP 18
--- NOTE | 2018-06-25 09:59 | P.PAINPG ---
Subjective Progress Note Date: 06/24/18 This is follow up visit for this 72 years old male with a chronic history of severe low back pain, diagnosed with lumbar degenerative disc lumbers radiculopathy and lumbar spondylosis, we have done lumbar epidural steroid injection, he gets only short-term benefit from it, and he continued to have severe low back pain, with radiation to the lower extremity, he denies any motor or sensory deficits he denies any fever or night sweats and that is no change in the bowel movements or urination, he continued to use pain medication [place] 10/325 every 8 hours when necessary, Lyrica 50 mg twice a day, Flexeril 10 mg daily at bedtime and Celebrex 200 mg once a day, patient also complaining of increase of severe neck pain, with radiation to the shoulder blade area bilaterally more on the right side, he denies any motor or sensory deficit in the upper extremity. Objective - Vital Signs Vital signs: Vital Signs Temp Pulse 77 06/24/18 13:48 Resp 18 06/24/18 13:48 BP 141/92 06/24/18 13:48 Pulse Ox Intake & Output 06/24/18 06/25/18 06/25/18 18:59 06:59 18:59 Weight 99.79 kg - Exam Physical Examinations : 1-Constitutiona : Cooperative , not in acute distress . 2-HEENT : nech ; supple , no Lymphadenopathy , normal thyroid size . eyes : no ptosis , no icterus, no photophobia . ENT : normal of hearing , normal oropharynx , no Thrush . 3- Respiratory : Chest clear to auscultations Bilaterally , no wheezing , no Rhonchi . 4- Cardiovascular : regular rate and rhythem , S1 , S2 , no S3 , no S4. 5- Gastrointestinal : abdomen soft no tenderness , bowel sounds , no organomegally . 6- Genitourinary : Defferred . 7- neurologic : Cranial nerve II to XII intact , no focal neurological deffecit . 8-psychatric : alert , oriented X 3 , appropriate affect , intact judgment and insight . 9-Lymphatic : no Lymphadenopathy . 10- musculoskeltal : Cervical Spine motor stregnth in the deltoid and biceps, normal right side , normal Left side motor stregnth biceps and the wrist extensors normal right side ,normal left side . motor stregnth in the triceps muscle . normal Right side , normal Left side deep tendon reflexes normal at the biceps , normal at Brachioradialis , normal at triceps. positive cervical facet loading test . Lumber spine moter stegnth lower extremities , thigh and legs 5/5 Right side , 5/5 Left side deep tendon reflexes : normal Knee Jerk , normal ankle Jerk positive lumber facet Loading Test Range of motion of the lumbar spine Flexion 30 degrees, extension 10 degrees strait leg raising test , positive at 30 degree Fabere test positive RT and positive LT . Sever tenderness over the Sacroiliac joint on the R and L sides Assessment and Plan Plan: Assessment and plan= chronic low back pain secondary to lumbar degenerative disc disease , lumbar spondylosis with lumbar facet arthropathy . Severe neck pain secondary to cervical spondylosis Patient had short-term benefit from lumbar epidural steroid injection done multiple times, he continued to have severe low back pain Will be scheduled to have diagnostic medial branch block lumbar area at L3-4/ L4 5/L5-S1 we would do with less effort and if he had good results then we will proceed with a radiofrequency ablation I will order CT scan of the cervical spine to confirm the diagnosis Time with Patient: Less than 30 PQRS Measure Charge Sheet Measure #130: Documentation of Current Meds in Medical Chart: Patient's medications documented in chart Measure #226: Tobacco Use: Screen & Cessation Intervention: Pt not a tobacco user Measure #111: Pneumonia Vaccination: Pneumococcal vaccine administered or previously received Measure #47: Advance Care Plan: Advance care planning discussed & documented, pt chose/unable to give Measure #412: Opioid Treatment Agreement: No documentation of signed opioid treatment agreement Measure #408: Opioid Therapy Follow-up Evaluation: Patient had NO f/u eval minimum every 3 months during opioid therapy Measure #317: Preventitive Care & Scrn High Bld Press & F/U: Pre-hypertensive or hypertensive BP documented, pt will f/u with PCP Measure #128: Body Mass Index (BMI) Screening & Follow-up: BMI documented ABOVE normal parameters - f/u documented Measure #131: Pain Assessment & Follow-up: Pain positive & plan documented, Follow-up scheduled Measure #431: Unhealthy Alcohol Use Preventative Care & Scrn: Patient not identified as an unhealthy alcohol user PQRS Narrative: Smoking Status Never smoker Do You Want the Pneumonia Vaccine Up to Date Vaccine AT THIS TIME? Blood Pressure 141/92 Pain Intensity [Upper Back] 6 Pain Intensity [Lower Back] 3 Hx Alcohol Use (MH) No Home Medications: Ambulatory Orders Aspirin EC [Ecotrin] 81 mg PO DAILY 12/17/17 Celecoxib [CeleBREX] 200 mg PO DAILY 12/17/17 Cyclobenzaprine [Flexeril] 10 mg PO HS 12/17/17 DULoxetine HCL [Cymbalta] 60 mg PO DAILY 12/17/17 Ezetimibe [Zetia] 10 mg PO MOWEFR 12/17/17 Levothyroxine Sodium [Synthroid] 50 mcg PO HS 12/17/17 Rousseau-3 Acid Ethyl Esters [Lovaza] 1 gm PO BID 12/17/17 Pregabalin [Lyrica] 150 mg PO BID 12/17/17 Rosuvastatin [Crestor] 10 mg PO DAILY 12/17/17 Ubidecarenone [Co Q-10] 200 mg PO DAILY 12/17/17 Cholecalciferol [Vitamin D3] 1,000 unit PO DAILY 03/06/18 Cinnamon Bark [Cinnamon] 500 mg PO DAILY 03/06/18 Folic Acid 1 mg PO DAILY 03/06/18 Garlic 1 each PO DAILY 03/06/18 Magnesium 400 mg PO DAILY 03/06/18 Turmeric Root Extract [Turmeric] 400 mg PO DAILY 03/06/18 Vitamin B Complex 1 each PO DAILY 03/06/18 Docusate [Colace] 100 mg PO DAILY 03/16/18 HYDROcodone/APAP 10-325MG [[place] 10-325] 1 tab PO TID PRN 03/16/18 Polyethylene Glycol 3350 [Miralax] 17 gm PO DAILY 03/16/18 Controlled Substance Measures - Controlled Substance Measures Is patient prescribed a controlled substance at discharge?: No When asked, does pt state using other controlled substances?: No If prescribed controlled substance>3 days was MAPS reviewed?: No If Rx opioid, was Start Talking consent form obtained?: No If opioid is for acute pain is fill amount 7 days or less?: No Was information provided regarding opioid addiction?: No
== END | disposition home or self-care (01) ==
LOC: PNWHC3 13:36
PROVIDERS: ATTEND Specialist
DX: G89.29 Other chronic pain (principal); M54.5 Low back pain; M51.16 Intervertebral disc disorders with radiculopathy, lumbar region; M47.26 Other spondylosis with radiculopathy, lumbar region; M46.86 Other specified inflammatory spondylopathies, lumbar region; M47.812 Spondylosis without myelopathy or radiculopathy, cervical region; Z79.891 Long term (current) use of opiate analgesic; Z79.899 Other long term (current) drug therapy; Z79.82 Long term (current) use of aspirin
CPT/HCPCS: 99211

== ENCOUNTER → 2018-06-30 | Day surgery (SDC) | payer OTHER ==
[2018-06-25 13:52] VITALS: BMI 29.8
[~2018-06-30] MED LIST changes: -LACTATED RINGERS 1,000 ML IV SCH; +SODIUM CHLORIDE 0.9% 500 ML 500 ML IV SCH
[2018-06-30 07:22] VITALS: TEMP 98.9
--- NOTE | 2018-06-30 09:27 | P.PCN ---
Date of Procedure: 06/30/18 Procedure(s) Performed: PREOPERATIVE DIAGNOSIS : 1- Lumbar spondylosis with Facet Arthropathy without myelopathy . 2- Lumber degenerative disc disease POSTOPERATIVE DIAGNOSIS: 1- Lumbar spondylosis with Facet Arthropathy without myelopathy . 2- Lumber degenerative disc disease PROCEDURE: Diagnostic bilateral L3 -4 , L4 -5 , and L5-S1 medial branch block under fluoroscopy ANESTHESIA: moderate sedation with intravenous Versed 2 mg and Fentanyl 50 mcg. EBL: Minimal COMPLICATION: None. IV FLUIDS: 100 mL of normal saline. PROCEDURE INDICATION: Chronic low back pain secondary to Facet arthropathy unresponsive to conservative treatment. PROCEDURE DESCRIPTION: the patient was seen and identified in the preop holding area , risks and benefits and possible complications of the procedure and alternative were discussed with the patient, and the patient agreed to proceed with the procedure and signed the consent IV was started and vital signs monitored during the procedure and fluoroscopy was used to maximize the benefit and accuracy of the needle placement, and sedation was given to decrease patient anxiety, patient was taken to the procedure room and placed in prone position vital signs monitored in the back prepped with chlorhexidine X3 then under strict sterile technique using a right oblique fluoroscopy ,the junction of the transverse process and the superior articulating process of the right L3- 4 , L4- 5, and L5-S1 vertebra which corresponding to the fluoroscopy image of the eye of the [place]arrison dog on the block side for the medial branches and subsequently , after local infiltration of skin and subcu tissuies with Ropivacaine 0.5 % , one mL at each level , then 25-gauge Quincke-type needles , 3 needle was used , each one of them placed at the junction of the base of the transverse process and the superior articular process at the appropriate level, and the needle was advanced until the periosteum contacted, needle placement confirmed with AP oblique and lateral view and after appropriate needle placement confirmed, and after negative aspiration for heme and CSF and there was no paresthesia 1-1/2 mL of Ropivacaine 0.5% mixed with 20 mg Kenalog , then half mL injected at each level after negative aspiration the needle subsequently removed and the same procedure repeated for the left side at left side at L3-4, L4- 5 and L5-S1 levels. At the end of the procedure and the needles removed and a bandage applied after the skin was cleaned the cleaning solution patient taken to recovery room in stable condition and monitors in the recovery room for 20-30 minutes and discharged home in stable condition after discharge criteria met and patient will follow up with the pain clinic in 2-4 weeks
[2018-06-30 09:49] VITALS: RESP 18
[2018-06-30 10:14] VITALS: BP 146/74; PULSE 76
--- NOTE | 2018-06-30 10:37 | FL ---
Fluoroscopy HISTORY: Pain 14 seconds fluoroscopy time supplied to the referring clinician. 4 intraoperative C-arm images docum ent the procedure. See dictated report from anesthesia.
== END ==
LOC: ORPAIN 06:46
PROVIDERS: ATTEND Specialist
DX: G89.29 Other chronic pain (principal); M47.816 Spondylosis without myelopathy or radiculopathy, lumbar region; M51.36 Other intervertebral disc degeneration, lumbar region
CPT/HCPCS: 64493; 64494; 64495; J2250; J3301; J3010; 99152

== ENCOUNTER 2018-07-09 08:23 | Day surgery (SDC) | payer OTHER ==
[2018-07-03 18:13] VITALS: BMI 30.5
[2018-07-09 10:00] VITALS: RESP 16; TEMP 97.5
--- NOTE | 2018-07-09 10:33 | P.PCN ---
Date of Procedure: 07/09/18 Procedure(s) Performed: PREOPERATIVE DIAGNOSIS : 1- Lumbar spondylosis with Facet Arthropathy without myelopathy . 2- Lumber degenerative disc disease POSTOPERATIVE DIAGNOSIS: 1- Lumbar spondylosis with Facet Arthropathy without myelopathy . 2- Lumber degenerative disc disease PROCEDURE: Diagnostic bilateral L3 -4 , L4 -5 , and L5-S1 medial branch block under fluoroscopy ( #2nd diagnostic block ) ANESTHESIA: moderate sedation with intravenous Versed 2 mg and Fentanyl 100 mcg. EBL: Minimal COMPLICATION: None. IV FLUIDS: 100 mL of normal saline. PROCEDURE INDICATION: Chronic low back pain secondary to Facet arthropathy unresponsive to conservative treatment. PROCEDURE DESCRIPTION: the patient was seen and identified in the preop holding area , risks and benefits and possible complications of the procedure and alternative were discussed with the patient, and the patient agreed to proceed with the procedure and signed the consent IV was started and vital signs monitored during the procedure and fluoroscopy was used to maximize the benefit and accuracy of the needle placement, and sedation was given to decrease patient anxiety, patient was taken to the procedure room and placed in prone position vital signs monitored in the back prepped with chlorhexidine X3 then under strict sterile technique using a right oblique fluoroscopy ,the junction of the transverse process and the superior articulating process of the right L3- 4 , L4- 5, and L5-S1 vertebra which corresponding to the fluoroscopy image of the eye of the Garrison dog on the block side for the medial branches and subsequently , after local infiltration of skin and subcu tissuies with Ropivacaine 0.5 % , one mL at each level , then 25-gauge Quincke-type needles , 3 needle was used , each one of them placed at the junction of the base of the transverse process and the superior articular process at the appropriate level, and the needle was advanced until the periosteum contacted, needle placement confirmed with AP oblique and lateral view and after appropriate needle placement confirmed, and after negative aspiration for heme and CSF and there was no paresthesia 1-1/2 mL of Ropivacaine 0.5% mixed with 20 mg Kenalog , then half mL injected at each level after negative aspiration the needle subsequently removed and the same procedure repeated for the left side at left side at L3-4, L4- 5 and L5-S1 levels. At the end of the procedure and the needles removed and a bandage applied after the skin was cleaned the cleaning solution patient taken to recovery room in stable condition and monitors in the recovery room for 20-30 minutes and discharged home in stable condition after discharge criteria met and patient will follow up with the pain clinic in 2-4 weeks
[2018-07-09] MEDS ORDERED: IV FLUID CONTINUATION 1,000 ML IV ONE (10:37)
--- NOTE | 2018-07-09 11:00 | FL ---
EXAMINATION TYPE: FL guided pain mgmt statistic DATE OF EXAM: 07/09/2018 HISTORY: Flouroscopy time 9 seconds of fluoroscopy provided. IMPRESSION: 1. Fluoroscopy time.
[2018-07-09 11:31] VITALS: BP 153/79; PULSE 70
== END 2018-07-09 11:55 | disposition home or self-care (01) ==
LOC: ORPAIN 08:23
PROVIDERS: ATTEND Specialist
DX: G89.29 Other chronic pain (principal); M47.816 Spondylosis without myelopathy or radiculopathy, lumbar region; M51.36 Other intervertebral disc degeneration, lumbar region
CPT/HCPCS: 64493; 64494; 64495; J2250; J3301; J3010; 99152

== ENCOUNTER → 2018-07-16 | Outpatient (CLI) | payer OTHER ==
[2018-07-16 14:46] VITALS: BP 118/73; PULSE 97; RESP 18
--- NOTE | 2018-07-16 15:21 | P.PAINPG ---
Subjective Progress Note Date: 07/16/18 This is follow up visit for this 72 years old male with a chronic history of severe low back pain, diagnosed with lumbar degenerative disc , and lumbar spondylosis, we have done lumbar epidural steroid injection, he gets only short -term benefit from it, and he continued to have severe low back pain, recently we have done diagnostic medial branch block lumbar area L3 to S1, and he reports his pain improved significantly after the diagnostic medial branch block his VAS was 5-6/10 before the block decreased to 0/10 after the block , he denies any motor or sensory deficits he denies any fever or night sweats and that is no change in the bowel movements or urination, he continued to use pain medication Winsted 10/325 every 8 hours when necessary, Lyrica 50 mg twice a day, Flexeril 10 mg daily at bedtime and Celebrex 200 mg once a day, Physical Examinations : 1-Constitutiona : Cooperative , not in acute distress . 2-HEENT : nech ; supple , no Lymphadenopathy , normal thyroid size . eyes : no ptosis , no icterus, no photophobia . ENT : normal of hearing , normal oropharynx , no Thrush . 3- Respiratory : Chest clear to auscultations Bilaterally , no wheezing , no Rhonchi . 4- Cardiovascular : regular rate and rhythem , S1 , S2 , no S3 , no S4. 5- Gastrointestinal : abdomen soft no tenderness , bowel sounds , no organomegally . 6- Genitourinary : Defferred . 7- neurologic : Cranial nerve II to XII intact , no focal neurological deffecit . 8-psychatric : alert , oriented X 3 , appropriate affect , intact judgment and insight . 9-Lymphatic : no Lymphadenopathy . 10- musculoskeltal : Cervical Spine motor stregnth in the deltoid and biceps, normal right side , normal Left side motor stregnth biceps and the wrist extensors normal right side ,normal left side . motor stregnth in the triceps muscle . normal Right side , normal Left side deep tendon reflexes normal at the biceps , normal at Brachioradialis , normal at triceps. positive cervical facet loading test . Lumber spine moter stegnth lower extremities , thigh and legs 5/5 Right side , 5/5 Left side deep tendon reflexes : normal Knee Jerk , normal ankle Jerk positive lumber facet Loading Test Range of motion of the lumbar spine Flexion 30 degrees, extension 10 degrees strait leg raising test , positive at 30 degree Fabere test positive RT and positive LT . Sever tenderness over the Sacroiliac joint on the R and L sides Assessment and plan= chronic low back pain secondary to lumbar degenerative disc disease , lumbar spondylosis with lumbar facet arthropathy . Severe neck pain secondary to cervical spondylosis Patient had short-term benefit from lumbar epidural steroid injection done multiple times, he continued to have severe low back pain he had more than 70% improvement in his pain after diagnostic medial branch block lumbar area at L3-4/L4 5/L5-S1, and he will be good candidate for radiofrequency radiofrequency ablation of the medial branch lumbar area Objective - Vital Signs Vital signs: Vital Signs Temp Pulse 97 07/16/18 14:33 Resp 18 07/16/18 14:33 BP 118/73 07/16/18 14:33 Pulse Ox 80 L 07/16/18 14:33 Intake & Output 07/15/18 07/16/18 07/16/18 18:59 06:59 18:59 Weight 102.058 kg PQRS Measure Charge Sheet Measure #130: Documentation of Current Meds in Medical Chart: Patient's medications documented in chart Measure #226: Tobacco Use: Screen & Cessation Intervention: Pt not a tobacco user Measure #111: Pneumonia Vaccination: Pneumococcal vaccine administered or previously received Measure #47: Advance Care Plan: Advance care planning discussed & documented, pt chose/unable to give Measure #412: Opioid Treatment Agreement: No documentation of signed opioid treatment agreement Measure #408: Opioid Therapy Follow-up Evaluation: Patient had NO f/u eval minimum every 3 months during opioid therapy Measure #317: Preventitive Care & Scrn High Bld Press & F/U: Normal blood pressure, f/u not required Measure #128: Body Mass Index (BMI) Screening & Follow-up: BMI documented ABOVE normal parameters - f/u documented Measure #131: Pain Assessment & Follow-up: Pain positive & plan documented, Follow-up scheduled Measure #431: Unhealthy Alcohol Use Preventative Care & Scrn: Patient not identified as an unhealthy alcohol user PQRS Narrative: Smoking Status Never smoker Blood Pressure 118/73 Pain Intensity [Lower Back] 3 Scale Used Numeric (1 - 10) Hx Alcohol Use (MH) No Home Medications: Ambulatory Orders Aspirin EC [Ecotrin] 81 mg PO DAILY 12/17/17 Celecoxib [CeleBREX] 200 mg PO DAILY 12/17/17 Cyclobenzaprine [Flexeril] 15 mg PO DAILY 12/17/17 DULoxetine HCL [Cymbalta] 60 mg PO DAILY 12/17/17 Ezetimibe [Zetia] 10 mg PO MOWEFR 12/17/17 Levothyroxine Sodium [Synthroid] 50 mcg PO HS 12/17/17 Austin-3 Acid Ethyl Esters [Lovaza] 1 gm PO BID 12/17/17 Pregabalin [Lyrica] 150 mg PO BID 12/17/17 Rosuvastatin [Crestor] 10 mg PO DAILY 12/17/17 Ubidecarenone [Co Q-10] 200 mg PO DAILY 12/17/17 Cholecalciferol [Vitamin D3] 1,000 unit PO DAILY 03/06/18 Cinnamon Bark [Cinnamon] 500 mg PO DAILY 03/06/18 Folic Acid 1 mg PO DAILY 03/06/18 Garlic 1 each PO DAILY 03/06/18 Magnesium 400 mg PO DAILY 03/06/18 Turmeric Root Extract [Turmeric] 400 mg PO DAILY 03/06/18 Vitamin B Complex 1 each PO DAILY 03/06/18 Docusate [Colace] 100 mg PO DAILY 03/16/18 HYDROcodone/APAP 10-325MG [Winsted 10-325] 1 tab PO TID PRN 03/16/18 Polyethylene Glycol 3350 [Miralax] 17 gm PO DAILY 03/16/18 Controlled Substance Measures - Controlled Substance Measures Is patient prescribed a controlled substance at discharge?: No When asked, does pt state using other controlled substances?: No If prescribed controlled substance>3 days was MAPS reviewed?: No If Rx opioid, was Start Talking consent form obtained?: No If opioid is for acute pain is fill amount 7 days or less?: No Was information provided regarding opioid addiction?: No
== END | disposition home or self-care (01) ==
LOC: PNWHC3 13:55
PROVIDERS: ATTEND Anesthesiology
DX: G89.29 Other chronic pain (principal); M51.36 Other intervertebral disc degeneration, lumbar region; M47.816 Spondylosis without myelopathy or radiculopathy, lumbar region; M46.96 Unspecified inflammatory spondylopathy, lumbar region; M47.812 Spondylosis without myelopathy or radiculopathy, cervical region; Z79.899 Other long term (current) drug therapy; Z79.82 Long term (current) use of aspirin
CPT/HCPCS: 99211

== ENCOUNTER 2018-08-12 07:13 | Day surgery (SDC) | payer OTHER ==
[2018-08-12 07:56] VITALS: TEMP 97.2
[2018-08-12] MEDS ORDERED: LIDOCAINE 1% 20 ML VIAL (10MG/ML) FOR IV START INTRADERMA ONE (08:04)
[2018-08-12] MEDS ORDERED: LACTATED RINGERS 1,000 ML IV ONE ×2 (08:04)
[2018-08-12] MEDS ORDERED: SODIUM CHLORIDE 0.9% 500 ML 500 ML IV SCH (08:15)
--- NOTE | 2018-08-12 08:20 | P.PCN ---
Date of Procedure: 08/12/18 Surgeon: Vikash Allan Description of Procedure: Procedure(s) Performed: PREOPERATIVE DIAGNOSIS: Lumbar Spondylosis POSTOPERATIVE DIAGNOSIS: Same PROCEDURES: Radiofrequency ablation left L4, L5, sacral ala with fluoroscopic guidance SURGEON: Vikash Allan MD. ANESTHESIA: 10 mL of 1% lidocaine and conscious sedation with 2 mg of midazolam and 100 pg of fentanyl EBL: Minimal PROCEDURE INDICATION: The patient with low back pain secondary to lumbar facet arthropathy who had more than 50% relief of pain with previous diagnostic lumbar medial branch block with bupivacaine. He presents today for radiofrequency ablation of the left lumbar medial branch nerves to hopefully afford him better pain control. PROCEDURE DESCRIPTION / TECHNIQUE: The patient was seen and identified in the preoperative area. Risks, benefits, complications, including but not limited to risk of infection ,bleeding , allergic reactions to the medications and incomplete pain relief , and alternatives were discussed with the patient, the patient agreed to proceed with the procedure and signed the consent. IV was started. The operative site was marked. Patient was taken to the OR and time out was completed. The patient was placed in the prone position on the procedure table. The lumber area was prepped and draped in the usual sterile fashion. . Vital signs were closely monitored during the procedure .IV sedation was used during the procedure to decrease patients anxiety. Using AP and then oblique fluoroscopy, the ``eye of the Garrison dog corresponding to the connection between the superior and transverse articular processes of the above-mentioned levels were identified, marked, and localized with 1% lidocaine. Subsequently, a 20 [id number] radiofrequency cannula with a 10-mm active tip was advanced guided by fluoroscopy to each of the ``eyes of the Garrison dog at each site then underwent sensory testing at 50 Hz and 0 to 1 volt and motor testing at 2.5 Hz and 0 to 3 volt with local stimulation, but no radicular symptoms down the legs. Then the sites underwent radiofrequency thermocoagulation at 80 degrees celsius for 90 seconds after injecting 0.5 ml of PF lidocaine 1%. then After the thermocoagulation done , 1 ml of the block solution containing depomedrol 40 mg and 4 ml of marcaine 0.5% was injected in divided doses at each levels after negative aspiration of CSF and blood and with no paresthesias. Sterile dressings were applied. COMPLICATIONS: No acute complications. DISPOSITION / PLANS: The patient was placed in a supine position and transferred to the recovery area in a stable condition for observation and was discharged from the recovery room after meeting discharge criteria. Home discharge instructions given to the patient by the staff. The patient was reexamined prior to discharge.
[2018-08-12] MEDS ORDERED: IV FLUID CONTINUATION 1,000 ML IV ONE ×2 (08:44)
[2018-08-12 09:02] VITALS: BP 156/80; PULSE 72; RESP 18
--- NOTE | 2018-08-12 13:39 | FL ---
Fluoroscopy HISTORY: Pain 3 seconds fluoroscopy time supplied to the referring clinician. 1 intraoperative C-arm images docume nt the procedure. See dictated report from anesthesia.
--- NOTE | 2018-08-15 17:33 | CDI ---
Outpatient Documentation Clarification Form Date: 08/15/18 CDS/Environmental Lead Name: Estrellita Acharya Phone: If any questions, call [facility] Replenishment Associate at [phone] Patient Name: Rhett Meredith Admit Date: 08/12/18 Discharge Date: 08/12/18 ATTENTION: The [facility] Coding Staff appreciate your assistance in clarifying documentation. Please respond to the clarification below the line at the bottom and electronically sign. The [facility] Coding staff will review the response and follow-up if needed. Please note: Queries are made part of the Legal Health Record. If you have any questions, please contact the Replenishment Associate. Dear Dr. Allan, How many levels were injected/ablated? L4, L5, sacral ala isnt clear. Each level should be labeled as L3-L4, L4-L5, L5-S1, for example. Please clarify the levels injected. Thank you for your kind consideration. Levels are L4-5, L5-S1 and Sacral Ala. Thanks! DC
== END 2018-08-12 09:22 | disposition home or self-care (01) ==
LOC: ORPAIN 07:13
PROVIDERS: ATTEND Pain Medicine Pain Medicine
DX: G89.29 Other chronic pain (principal); M47.816 Spondylosis without myelopathy or radiculopathy, lumbar region; M51.36 Other intervertebral disc degeneration, lumbar region; M47.812 Spondylosis without myelopathy or radiculopathy, cervical region; Z79.899 Other long term (current) drug therapy; Z79.82 Long term (current) use of aspirin; Z79.890 Hormone replacement therapy
CPT/HCPCS: 64635; 64636; J2250; J1030; J2001; J3010; 99152

== ENCOUNTER → 2019-02-24 | Outpatient (CLI) | payer OTHER ==
[2019-02-24 13:01] VITALS: BP 169/82; PULSE 81; RESP 18
--- NOTE | 2019-02-24 13:29 | P.PN ---
Subjective Progress Note Date: 02/24/19 This is a 73-year-old with history of chronic neck and lower back pain and traumatic head injury. The patient had lumbar medial branch RFA which has helped his lower back pain however he still feels increasing pain in his legs which did not respond to lumbar epidural steroid injection previously. He describes pain all over his body that increases by bending over and by activities in general. He uses 450 mg of Lyrica every day and Cymbalta 60 mg a day plus [place] 10 mg 3 times a day as needed for his pain and he gets these medications from the [facility]. He is very hard of hearing. Today, pt denies new-onset weakness, bowel/bladder incontinence, or any other signs or symptoms of cauda equina syndrome. There are no signs of acute intoxication, and no indications of medication diversion or overuse. In addition to above, 13-point review of systems is also negative for chest pain, shortness of breath, changes in vision, changes in hearing, new onset weakness, abdominal pain, diarrhea, extreme fatigue, malaise, fever, skin changes, homicidal or suicidal ideation, or bowel or bladder incontinence. Vital Signs: Reviewed in EMR Gen: AAOx3, NAD HEENT: PERRLA,hearing grossly normal Pulm: resp unlabored Heart: Regular Neck: supple, trachea midline Neuro exam of the lower extremities: Decreased muscle strength to 4 out of 5 in general bilaterally in the lower extremities. Absent right knee reflex and normal left knee reflex. Absent ankle reflexes bilaterally. Positive tenderness around the sacroiliac joints bilaterally. Neuro: CN II-XII grossly intact, Imaging: Reviewed in EMR/chart Assessment: Lumbar spondylosis without myelopathy Bilateral sacroiliitis Lumbar DDD Hard of hearing Plan: 1. Explanation: Opioid and psychological risk scores were reviewed. Diagnoses, prognoses, and multiple treatment options including but not limited to physical therapy, interventional therapies, adjuvant medical therapies, narcotic medication therapies, and surgery were discussed with the patient and all questions were answered to the patient's satisfaction. 2. Opioid agreement: Signed with the patient and the patient is warned not to use opioids while driving or before driving and not to combine opioids with benzodiazepines or alcohol. 3. Counseling: The patient was counseled extensively on SMOKING CESSATION, BODY MASS INDEX, EXERCISE. Specifically, the patient was instructed regarding the importance of smoking cessation, obesity, and exercise in the context of both chronic pain and overall health. 4. Procedures: Bilateral sacroiliac joint steroid injection under fluoroscopic guidance. The patient understands that this injection will take all of his pain and we however hopefully it will give him some pain relief. 5. Consultations: None 6. Investigations: None 7. Medications: None prescribed from this clinic 8. Disposition: Return to the above-mentioned procedure as soon as possible 9. Maps were reviewed and were appropriate. PQRS measures: 1-Patient's medications are documented in the chart. 2-Tobacco use is negative, counseling given 3-Patient has had a pneumococcal vaccine. 4-Advanced care planning discussed, patient unable to give 5-Opioid contract signed with the patient. 6-Pain positive, follow-up visit or procedure scheduled 7-Patient's blood pressure measured and documented above normal limits. The patient will follow up with his primary care physician. 8-Patient's weight was measured, and body mass index ABOVE the normal limits, and counseling was done. Patient instructed to follow up with PCP. 9-Patient WAS NOT identified as an unhealthy alcohol user. Controlled Substance Measures Is patient prescribed a controlled substance at discharge?: Yes When asked, does pt state using other controlled substances?: No If prescribed controlled substance>3 days was MAPS reviewed?: Yes If Rx opioid, was Start Talking consent form obtained?: Yes If opioid is for acute pain is fill amount 7 days or less?: No Was information provided regarding opioid addiction?: Yes Objective - Vital Signs Vital signs: Vital Signs Temp Pulse 81 02/24/19 12:49 Resp 18 02/24/19 12:49 BP 169/82 02/24/19 12:49 Pulse Ox 96 02/24/19 12:49
== END | disposition home or self-care (01) ==
LOC: PNWHC3 12:18
PROVIDERS: ATTEND Anesthesiology
DX: M47.816 Spondylosis without myelopathy or radiculopathy, lumbar region (principal); M54.5 Low back pain; G89.29 Other chronic pain; M46.1 Sacroiliitis, not elsewhere classified; M51.36 Other intervertebral disc degeneration, lumbar region
CPT/HCPCS: 99211

== ENCOUNTER 2019-03-09 07:03 | Day surgery (SDC) | payer OTHER ==
[2019-03-04 10:23] VITALS: BMI 29.8
[~2019-03-09 07:03] MED LIST changes: +LACTATED RINGERS 1,000 ML IV SCH; -SODIUM CHLORIDE 0.9% 500 ML 500 ML IV SCH
[2019-03-09] MEDS ORDERED: LIDOCAINE 1% 20 ML VIAL (10MG/ML) FOR IV START INTRADERMA ONE (08:01)
[2019-03-09 08:06] VITALS: RESP 16; TEMP 97.5
--- NOTE | 2019-03-09 09:11 | P.PCN ---
Date of Procedure: 03/09/19 Procedure(s) Performed: Procedure= bilateral sacral iliac joints steroid injection under fluoroscopy guidance Preoperative diagnosis= 1-sacroiliitis 2-lumbar degenerative disc disease 3- lumbar spondylosis with facet arthropathy Postoperative diagnosis=1-sacroiliitis 2-lumbar degenerative disc disease 3- lumbar spondylosis with facet arthropathy Complication = none Condition= stable Anesthesia= moderate sedation with intravenous Versed 2 mg , and fentanyl 100 micrograms and local infiltration with lidocaine 1% 5 mL Indication for the procedure= patient complaining of low back pain , examination was positive for severe tenderness over the sacroiliac joints bilaterally and patient diagnosed with sacroiliitis, for this reason he/ she was good candidate for sacroiliac joint steroid injection. Description of the procedure= procedure risk and benefits discussed with the patient, including but not limited, risk of infection and bleeding, and ALLERGIC reaction to the medication and not complete pain relief and patient agreed with the preceding patient taken to the operating room, placed in prone position or standard monitors applied to the patient then after induction of anesthesia back prepped with chlorhexidine 3 times , Then under strict sterile technique, first I did the right sacroiliac joint the which was identified under fluoroscopy guidance been local infiltration of the skin and subcu interstitial with lidocaine 1% then 22-gauge Quincke Needle advanced slowly under fluoroscopy and placed in the right sacroiliac joint needle placement confirmed with AP and oblique and lateral view and after appropriate needle placement confirmed and after negative aspiration, or heme , then Ropivacaine 0.5% 3 mL, and 40 mg of Depo-Medrol mixed together and injected in the right sacroiliac joint after negative aspiration patient tolerated the procedure well without any complication. Then the left sacroiliac joint steroid injection done under strict sterile technique local infiltration of the skin and subcu interstitial at the location of the left sacroiliac joint then a 22-gauge Quincke Needle advanced slowly under fluoroscopy time placed in the left sacroiliac joint, needle placement confirmed with AP and oblique and lateral view then after appropriate needle placement confirmed and after negative aspiration 0.5% Marcaine 3 mL and 40 mg of Depo-Medrol injected in the left sacroiliac joint after negative aspiration patient tolerated the procedure well that any complications and she will follow up in clinic 3 weeks
[2019-03-09] MEDS ORDERED: IV FLUID CONTINUATION 1,000 ML IV ONE (09:19)
[2019-03-09 09:23] VITALS: PULSE 71
[2019-03-09 09:40] VITALS: BP 131/80
--- NOTE | 2019-03-09 11:23 | FL ---
Fluoroscopy HISTORY: Pain 3 seconds fluoroscopy time supplied to the referring clinician. 2 intraoperative C-arm images docume nt the procedure. See dictated report from anesthesia.
== END 2019-03-09 10:00 | disposition home or self-care (01) ==
LOC: ORPAIN 07:03
PROVIDERS: ATTEND Specialist
DX: M46.1 Sacroiliitis, not elsewhere classified (principal); M51.36 Other intervertebral disc degeneration, lumbar region; M47.9 Spondylosis, unspecified
CPT/HCPCS: 27096; J2250; J1030; J3010; 99152

== ENCOUNTER 2019-03-18 15:30 | Emergency (ER) | payer MEDICARE, OTHER ==
[2019-03-18 15:36] VITALS: TEMP 98.2
[2019-03-18] MEDS ORDERED: MORPHINE SULFATE 4 MG/ML SYRINGE IVP STA (16:00)
[2019-03-18 17:11] LABS: Basophils % (A) 1 %; Eosinophils # (A) 0.1 k/uL (0-0.7); Eosinophils % (A) 2 %; HCT 47.5 % (39.0-53.0); HGB 15.4 gm/dL (13.0-17.5); Lymphocytes # (A) 2.2 k/uL (1.0-4.8); Lymphocytes % (A) 32 %; MCH 30.1 pg (25.0-35.0); MCHC 32.4 g/dL (31.0-37.0); MCV 92.8 fL (80.0-100.0); Mean Platelet Volume 7.4; Monocytes # (A) 0.5 k/uL (0-1.0); Monocytes % (A) 7 %; Neutrophils # (A) 3.8 k/uL (1.3-7.7); Neutrophils % (A) 56 %; Platelet Count 288 k/uL (150-450); RBC 5.12 m/uL (4.30-5.90); RDW 13.8 % (11.5-15.5); WBC 6.8 k/uL (3.8-10.6)
[2019-03-18 17:14] LABS: ALT 35 U/L (21-72); AST 46 U/L (17-59); African American GFR (CKD) >90 (>60 ml/min/1.73 sqM); Albumin 4.8 g/dL (3.5-5.0); Alkaline Phosphatase 67 U/L (38-126); Anion Gap 15 mmol/L; Blood Urea Nitrogen 24 mg/dL (9-20); Calcium 10.1 mg/dL (8.4-10.2); Carbon Dioxide 24 mmol/L (22-30); Chloride 102 mmol/L (98-107); Glucose 92 mg/dL (74-99); Potassium 4.4 mmol/L (3.5-5.1); Sodium 141 mmol/L (137-145); Total Bilirubin 0.7 mg/dL (0.2-1.3); Total Protein 7.5 g/dL (6.3-8.2)
[2019-03-18 17:21] VITALS: BP 149/89; RESP 16
--- NOTE | 2019-03-18 17:21 | XR ---
EXAMINATION TYPE: XR Hip Complete RT DATE OF EXAM: 03/18/2019 COMPARISON: NONE HISTORY: Hip pain TECHNIQUE: 2 views FINDINGS: I see no fracture nor dislocation. Hip joint space is normal. There is no sign of hip dyspl christian. IMPRESSION: Negative right hip exam.
--- NOTE | 2019-03-18 18:01 | ED ---
General Adult HPI - General Chief complaint: Extremity Injury, Lower Stated complaint: RT hip & groin pain Time Seen by Provider: 03/18/19 15:38 Source: patient Mode of arrival: wheelchair Limitations: physical limitation - History of Present Illness Initial comments: Patient is 73-year-old male presents emergency Department with right hip pain. Patient has a history of sciatica. Patient reports the pain started approximately 3 days ago and has increased in severity. Patient reports the pain originates at the right buttock and radiates along the lateral and anterior aspect of the right upper leg. Patient reports the subscapular pain is exacerba dede with any motion of the arm lower back. Patient denies fever, chest pain, chest tightness, shortness of breath, dizziness, lightheadedness. Patient does report a right-sided headache but states that is a chronic issue for him. Patient reports using a lidocaine patch around the right hip to minimize symptoms with minimal improvement. Patient does have a history of umbilical hernias. Patient denies any numbness or tingling, saddle paresthesia, urinary or bowel symptoms. Patient denies nausea, vomiting, diarrhea. No red flags. Patient denies abdominal or testicular pain. - Related Data Home Medications Medication Instructions Recorded Confirmed Celecoxib [CeleBREX] 200 mg PO DAILY 12/17/17 03/09/19 Cyclobenzaprine [Flexeril] 5 mg PO TID 12/17/17 03/09/19 DULoxetine HCL [Cymbalta] 80 mg PO DAILY 12/17/17 03/09/19 Ezetimibe [Zetia] 10 mg PO DAILY 12/17/17 03/09/19 Levothyroxine Sodium [Synthroid] 50 mcg PO HS 12/17/17 03/09/19 Drum[place]-3 Acid Ethyl Esters [Lovaza] 1 gm PO BID 12/17/17 03/09/19 Pregabalin [Lyrica] 150 mg PO BID 12/17/17 03/09/19 Rosuvastatin [Crestor] 10 mg PO DAILY 12/17/17 03/09/19 Cholecalciferol [Vitamin D3] 1,000 unit PO DAILY 03/06/18 03/09/19 Cinnamon Bark [Cinnamon] 500 mg PO DAILY 03/06/18 03/09/19 Folic Acid 1 mg PO DAILY 03/06/18 03/09/19 Garlic 1 each PO DAILY 03/06/18 03/09/19 Magnesium 800 mg PO DAILY 03/06/18 03/09/19 Turmeric Root Extract [Turmeric] 400 mg PO DAILY 03/06/18 03/09/19 Vitamin B Complex 1 each PO DAILY 03/06/18 03/09/19 Docusate [Colace] 100 mg PO DAILY PRN 03/16/18 03/09/19 HYDROcodone/APAP 10-325MG [[place]strong 1 tab PO TID PRN 03/16/18 03/09/19 10-325] Aspirin EC [Ecotrin Low Dose] 162 mg PO DAILY 08/04/18 03/09/19 Ubidecarenone [Co Q-10] 200 mg PO DAILY 08/04/18 03/09/19 Psyllium Husk 100% [Metamucil 6 gm PO DAILY 03/04/19 03/09/19 Packet] Previous Rx's Medication Instructions Recorded Cyclobenzaprine [Flexeril] 10 mg PO TID PRN #15 tab 03/18/19 Allergies Allergy/AdvReac Type Severity Reaction Status Date / Time No Known Allergies Allergy Verified 03/18/19 15:36 Review of Systems ROS Statement: Those systems with pertinent positive or pertinent negative responses have been documented in the HPI. ROS Other: All systems not noted in ROS Statement are negative. Past Medical History Past Medical History: Cancer, Hearing Disorder / Deafness, Myocardial Infarction (RI), Musculoskeletal Disorder, Osteoarthritis (OA), Thyroid Disorder Additional Past Medical History / Comment(s): 3 TBI's. Skin Cancer. Prostate Cancer. 3 RI's with stents. Steel plate in head left zygomatic arch. Peripheral Neuropathy. DDD, CHRONIC HEAD PAIN - AT BASE OF NECK. Mostly deaf even w/hearing aids Last Myocardial Infarction Date:: UNSURE History of Any Multi-Drug Resistant Organisms: None Reported Past Surgical History: Coronary Bypass/CABG, Heart Catheterization With Stent, Hernia Repair, Prostate Surgery Additional Past Surgical History / Comment(s): Arthroscopy right knee. 5 way bypass 2003, STENTS X2 PRIOR. Prostatectomy 2006 Past Anesthesia/Blood Transfusion Reactions: No Reported Reaction, Blood Transfu guy Reaction Additional Past Anesthesia/Blood Transfusion Reaction / Comment(s): high ammonia levels after transfusion-had tx. for Date of Last Stent Placement:: 1994 Past Psychological History: No Psychological Hx Reported Smoking Status: Never smoker Past Alcohol Use History: None Reported Past Drug Use History: None Reported - Past Family History Mother Family Medical History: No Reported History Father Family Medical History: Cancer General Exam Limitations: physical limitation General appearance: alert, in no apparent distress, obese Head exam: Present: atraumatic, normocephalic, normal inspection Eye exam: Present: normal appearance, PERRL, EOMI Pupils: Present: normal accommodation ENT exam: Present: normal exam, mucous membranes moist, normal external ear exam Neck exam: Present: normal inspection, full ROM Respiratory exam: Present: normal lung sounds bilaterally Cardiovascular Exam: Present: regular rate, normal rhythm GI/Abdominal exam: Present: soft, tenderness (Tenderness along the right umbilical region.), other (Negative McBurney point tenderness. Positive psoas. positive obturator sign. Negative Rovsing). Absent: hernia (No palpable hernias.) Extremities exam: Present: normal inspection, tenderness (Tenderness with palpation along the inguinal region), normal capillary refill, other (+2 radial and ulnar pulses bilaterally. +2 dorsalis pedis and posterior tibialis bilaterally.). Absent: full ROM (Limited range of motion of the right leg due to pain.), pedal edema, joint swelling Back exam: Present: normal inspection, other (Positive leg raise test.). Absent: tenderness (No thoracic or lumbar tenderness), CVA tenderness (R), CVA tenderness (L), paraspinal tenderness, vertebral tenderness Neurological exam: Present: alert, oriented X3, other (No focal neural deficits.) Psychiatric exam: Present: normal affect, normal mood Skin exam: Present: warm, intact, normal color Course Vital Signs 03/18/19 03/18/19 03/18/19 15:34 17:18 18:50 Temperature 98.2 F Pulse Rate 82 85 69 Respiratory 18 16 16 Rate Blood Pressure 137/81 149/89 149/89 O2 Sat by Pulse 98 93 L 94 L Oximetry 03/18/19 19:33 Temperature 98.2 F Pulse Rate 69 Respiratory 16 Rate Blood Pressure 149/89 O2 Sat by Pulse 94 L Oximetry EKG Findings - EKG Comments: EKG Findings:: EKG machine reading: Atrial flutter, right bundle branch block. My interpretation: Right bundle branch block. Ventricular rate 84. LA interval*. QRS duration 120. QT/QTc 380/449. P-R-T axes 28 19 58 Medical Decision Making - Medical Decision Making Patient is 73-year-old male presenting to the emergency department with right hip pain. X-ray of the right hip is negative for acute fractures or dislocations. Labs are unremarkable. Patient did have positive psoas and obturator sign so I performed a CT of abdomen and pelvis which is is indicative of a small gastric lipoma, minimal arthritis in the hip joints but no appendicitis or any acute abdominopelvic pathologies. At this point I suspect the patient to have exacerbation of his sciatica symptoms. the subscapular pain due to muscular skeletal related. Patient advised to follow-up with orthopedics for further management. Strict return parameters were thoroughly discussed with patient and his who are understanding and agreeable. Patient was given morphine, Dilaudid and Ativan. On repeat evaluation patient appears to be feeling better and is able to ambulate with slight discomfort. Patient will be discharged with Flexeril. Patient states that he has narcotic prescriptions at home for pain control so none will be prescribed. An EKG was initiated before examine the patient. The EKG is indicative of a right bundle branch block. Patient reports that he recently saw his caustic preparer and was not mention anything about it. Patient is not symptomatic so I advised the patient to follow-up with his caustic preparer again regarding this finding. Case discussed with physician. - Lab Data Result diagrams: 03/18/19 16:20 03/18/19 16:20 Lab Results 03/18/19 03/18/19 Range/Units 16:20 16:20 WBC 6.8 (3.8-10.6) k/uL RBC 5.12 (4.30-5.90) m/uL Hgb 15.4 (13.0-17.5) gm/dL Hct 47.5 (39.0-53.0) % MCV 92.8 (80.0-100.0) fL MCH 30.1 (25.0-35.0) pg MCHC 32.4 (31.0-37.0) g/dL RDW 13.8 (11.5-15.5) % Plt Count 288 (150-450) k/uL Neutrophils % 56 % Lymphocytes % 32 % Monocytes % 7 % Eosinophils % 2 % Basophils % 1 % Neutrophils # 3.8 (1.3-7.7) k/uL Lymphocytes # 2.2 (1.0-4.8) k/uL Monocytes # 0.5 (0-1.0) k/uL Eosinophils # 0.1 (0-0.7) k/uL Basophils # 0.0 (0-0.2) k/uL Sodium 141 (137-145) mmol/L Potassium 4.4 (3.5-5.1) mmol/L Chloride 102 (98-107) mmol/L Carbon Dioxide 24 (22-30) mmol/L Anion Gap 15 mmol/L BUN 24 H (9-20) mg/dL Creatinine 0.74 (0.66-1.25) mg/dL Est GFR (CKD-EPI)AfAm >90 (>60 ml/min/1.73 sqM) Est GFR (CKD-EPI)NonAf >90 (>60 ml/min/1.73 sqM) Glucose 92 (74-99) mg/dL Calcium 10.1 (8.4-10.2) mg/dL Total Bilirubin 0.7 (0.2-1.3) mg/dL AST 46 (17-59) U/L ALT 35 (21-72) U/L Alkaline Phosphatase 67 (38-126) U/L Total Protein 7.5 (6.3-8.2) g/dL Albumin 4.8 (3.5-5.0) g/dL Disposition Clinical Impression: Back pain Disposition: HOME SELF-CARE Condition: Stable Instructions (If sedation given, give patient instructions): Low Back Strain (ED) Additional Instructions: Please take prescribed medication as directed. Least follow with computer specialist. Please return to emergency department if symptoms worsen. Prescriptions: Cyclobenzaprine [Flexeril] 10 mg PO TID PRN #15 tab PRN Reason: Muscle Spasm Is patient prescribed a controlled substance at d/c from ED?: No Referrals: [facility],Clinic [Primary Care Provider] - 1-2 days Derick Farfan PAC [PHYSICIAN FINANCIAL CONSULTANT] - 1-2 days Misbah Jenkins DO [Medical Doctor] - 1-2 days Time of Disposition: 19:25
--- NOTE | 2019-03-18 18:01 | CT ---
EXAMINATION TYPE: CT abdomen pelvis w con DATE OF EXAM: 03/18/2019 COMPARISON: None HISTORY: Right hip and groin pain. CT DLP: 1415.2 mGycm Automated exposure control for dose reduction was used. TECHNIQUE: Helical acquisition of images was performed from the lung bases through the pelvis. CONTRAST: Performed without Oral Contrast and with IV Contrast, patient injected with 100 mL of Isovue 300. FINDINGS: Lung bases are clear. There is no pleural effusion. Heart size is normal. There is no pericardial eff usion. Liver spleen pancreas gallbladder appear normal. Bile ducts are not dilated. Stomach has normal size. There is unusual appearance of the gastric antrum that could relate to a lipoma of the gastric antra l wall. There is no adrenal mass. Kidneys show satisfactory contrast opacification. There is no hydronephrosi s. Ureters are not dilated. There is no retroperitoneal adenopathy. Appendix appears normal. Bladder distends smoothly. There is no inguinal hernia. There is no free fluid in the pelvis. There a re scattered diverticula in the descending colon and sigmoid colon. There is no evidence of diverticu litis. There is no mesenteric edema. There is no evidence of free air or ascites. There is no evidenc e of a bowel obstruction. Lumbar vertebra have normal alignment. Posterior elements are intact. Bony pelvis is intact. IMPRESSION: THERE IS MINIMAL COLONIC DIVERTICULOSIS. NO EVIDENCE OF DIVERTICULITIS. 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 NO FRACTURE SEEN. NO SIGNIFICANT ARTHRITIC DISEASE OF THE HIP JOINTS.
[2019-03-18] MEDS ORDERED: HYDROmorphone 1 MG/ML 1 ML SYRINGE IVP STA (18:42)
[2019-03-18] MEDS ORDERED: DIAZEPAM 5 MG/ML 2 ML INJ IVP PRN (18:43)
[2019-03-18 18:52] VITALS: PULSE 69
== END 2019-03-18 19:42 | disposition home or self-care (01) ==
LOC: EC 15:30
DX: M54.9 Dorsalgia, unspecified (principal); M16.0 Bilateral primary osteoarthritis of hip; I48.92 Unspecified atrial flutter; I45.10 Unspecified right bundle-branch block; I25.2 Old myocardial infarction; E07.9 Disorder of thyroid, unspecified; G62.9 Polyneuropathy, unspecified; Z79.890 Hormone replacement therapy; Z79.82 Long term (current) use of aspirin; Z79.899 Other long term (current) drug therapy; Z95.1 Presence of aortocoronary bypass graft; Z95.5 Presence of coronary angioplasty implant and graft
CPT/HCPCS: 36415; 93005; 80053; 85025; 73502; 74177; 99284; 96374; 96375 ×2; J2270; J3360; J1170; Q9967

== ENCOUNTER → 2019-03-22 | Outpatient (CLI) | payer OTHER ==
[2019-03-22 13:04] VITALS: BP 151/80; PULSE 63; RESP 16
--- NOTE | 2019-03-23 11:20 | P.PAINPG ---
Subjective Progress Note Date: 03/22/19 This is a 73-year-old with history of chronic neck and lower back pain and traumatic head injury. He has several different pain complaints, however today his primary pain complaint is right anterior thigh pain and right leg numbness as well as right buttock pain. He last underwent a bilateral SI joint injection which he feels provided him some relief however he states that his current buttock pain is lower than the area of the SI joint injection. He uses 450 mg of Lyrica every day and Cymbalta 60 mg a day plus [place] 10 mg 3 times a day as needed for his pain and he gets these medications from the [facility]. He is very hard of hearing. Today, pt denies new-onset weakness, bowel/bladder incontinence, or any other signs or symptoms of cauda equina syndrome. There are no signs of acute intoxication, and no indications of medication diversion or overuse. In addition to above, 13-point review of systems is also negative for chest pain, shortness of breath, changes in vision, changes in hearing, new onset weakness, abdominal pain, diarrhea, extreme fatigue, malaise, fever, skin changes, homicidal or suicidal ideation, or bowel or bladder incontinence. Vital Signs: Reviewed in EMR Gen: AAOx3, NAD HEENT: PERRLA,hearing grossly normal Pulm: resp unlabored Heart: No pedal edema Neck: supple, trachea midline Neuro exam of the lower extremities: Decreased muscle strength to 4 out of 5 in general bilaterally in the lower extremities. Absent ankle reflexes bilaterally. Positive tenderness around the sacroiliac joints bilaterally. Sophie test positive bilaterally. Lumbar facet loading positive bilaterally. Straight leg raise was negative bilaterally. Significant tenderness to palpation at right ischial bursa. Reduced sensation to light touch in entire right lower extremity. Neuro: CN II-XII grossly intact, Imaging: Lumbar spine CT done at [facility] on 05/19/2017 shows degenerative changes with at least moderate central canal stenosis at L4-5. Facet arthrosis in the lower lumbar spine. Assessment: Lumbar spondylosis without myelopathy Lumbar radiculopathy in L4 distribution on the right side Right ischial bursitis Bilateral sacroiliitis Lumbar DDD Hard of hearing Plan: 1. Explanation: Opioid and psychological risk scores were reviewed. Diagnoses, prognoses, and multiple treatment options including but not limited to physical therapy, interventional therapies, adjuvant medical therapies, narcotic medi cation therapies, and surgery were discussed with the patient and all questions were answered to the patient's satisfaction. 2. [facility]id agreement: [facility] 3. Counseling: The patient was counseled extensively on BODY MASS INDEX, EXERCISE. Specifically, the patient was instructed regarding the importance of obesity, and exercise in the context of both chronic pain and overall health. 4. Procedures: Right L4-5 transforaminal epidural steroid injection, right ischial bursa injection under fluoroscopic guidance. 5. Consultations: None 6. Investigations: None 7. Medications: None prescribed from this clinic 8. Disposition: Return to the above-mentioned procedure as soon as possible Objective - Vital Signs Vital signs: Vital Signs Temp Pulse 63 03/22/19 12:53 Resp 16 03/22/19 12:53 BP 151/80 03/22/19 12:53 Pulse Ox 98 03/22/19 12:53 Intake & Output 03/22/19 03/23/19 03/23/19 18:59 06:59 18:59 Weight 106.594 kg PQRS Measure Charge Sheet Measure #130: Documentation of Current Meds in Medical Chart: Patient's medications documented in chart Measure #226: Tobacco Use: Screen & Cessation Intervention: Pt not a tobacco user Measure #111: Pneumonia Vaccination: Pneumococcal vaccine administered or previously received Measure #47: Advance Care Plan: Advance care planning discussed & documented, pt chose/unable to give Measure #412: Opioid Treatment Agreement: No documentation of signed opioid treatment agreement Measure #408: Opioid Therapy Follow-up Evaluation: Patient had NO f/u eval minimum every 3 months during opioid therapy Measure #317: Preventitive Care & Scrn High Bld Press & F/U: Pre-hypertensive or hypertensive BP documented, pt will f/u with PCP Measure #128: Body Mass Index (BMI) Screening & Follow-up: BMI documented ABOVE normal parameters - f/u documented Measure #131: Pain Assessment & Follow-up: Pain positive & plan documented, Follow-up scheduled Measure #431: Unhealthy Alcohol Use Preventative Care & Scrn: Patient not identified as an unhealthy alcohol user PQRS Narrative: Smoking Status Never smoker Blood Pressure 151/80 Pain Intensity [Back] 9 Scale Used Numeric (1 - 10) Hx Alcohol Use (MH) No Home Medications: Ambulatory Orders Celecoxib [CeleBREX] 200 mg PO DAILY 12/17/17 Cyclobenzaprine [Flexeril] 5 mg PO TID 12/17/17 DULoxetine HCL [Cymbalta] 80 mg PO DAILY 12/17/17 Ezetimibe [Zetia] 10 mg PO DAILY 12/17/17 Levothyroxine Sodium [Synthroid] 50 mcg PO HS 12/17/17 Irvona-3 Acid Ethyl Esters [Lovaza] 1 gm PO BID 12/17/17 Pregabalin [Lyrica] 150 mg PO BID 12/17/17 Rosuvastatin [Crestor] 10 mg PO DAILY 12/17/17 Cholecalciferol [Vitamin D3] 1,000 unit PO DAILY 03/06/18 Cinnamon Bark [Cinnamon] 500 mg PO DAILY 03/06/18 Folic Acid 1 mg PO DAILY 03/06/18 Garlic 1 each PO DAILY 03/06/18 Magnesium 800 mg PO DAILY 03/06/18 Turmeric Root Extract [Turmeric] 400 mg PO DAILY 03/06/18 Vitamin B Complex 1 each PO DAILY 03/06/18 Docusate [Colace] 100 mg PO DAILY PRN 03/16/18 HYDROcodone/APAP 10-325MG [[place] 10-325] 1 tab PO TID PRN 03/16/18 Aspirin EC [Ecotrin Low Dose] 162 mg PO DAILY 08/04/18 Ubidecarenone [Co Q-10] 200 mg PO DAILY 08/04/18 Psyllium Husk 100% [Metamucil Packet] 6 gm PO DAILY 03/04/19 Cyclobenzaprine [Flexeril] 10 mg PO TID PRN #15 tab 03/18/19 Controlled Substance Measures - Controlled Substance Measures Is patient prescribed a controlled substance at discharge?: No
== END | disposition home or self-care (01) ==
LOC: PNWHC3 12:28
PROVIDERS: ATTEND Anesthesiology
DX: M51.16 Intervertebral disc disorders with radiculopathy, lumbar region (principal); M47.26 Other spondylosis with radiculopathy, lumbar region; M70.71 Other bursitis of hip, right hip; M46.1 Sacroiliitis, not elsewhere classified; H91.90 Unspecified hearing loss, unspecified ear; Z79.82 Long term (current) use of aspirin; Z79.1 Long term (current) use of non-steroidal anti-inflammatories (NSAID); Z79.891 Long term (current) use of opiate analgesic; Z79.899 Other long term (current) drug therapy
CPT/HCPCS: 99211

== ENCOUNTER → 2019-03-31 | Day surgery (SDC) | payer OTHER ==
[2019-03-29 13:56] VITALS: BMI 29.8
[~2019-03-31] MED LIST changes: +IV FLUID CONTINUATION 1,000 ML IV ONE
[2019-03-31 08:05] VITALS: TEMP 97
--- NOTE | 2019-03-31 09:30 | P.PCN ---
Date of Procedure: 03/31/19 Surgeon: Kody Lorenz Pathology: none sent Condition: stable Disposition: PACU Description of Procedure: Preoperative Diagnosis: Right lumbar radiculopathy, right ischial bursitis Postoperative Diagnosis: Same as above Procedure(s) Performed: Transforaminal epidural steroid injection for level L4-L5 on Rt. side under fluoroscopic guidance Right ischial bursa steroid injection under fluoroscopic guidance Anesthesia: MAC (IV conscious sedation with Versed and fentanyl) Surgeon: Kody Lorenz Condition: stable Disposition: PACU Description of Procedure: . The patient was seen and identified in the preoperative area. Risks, benefits, complications, and alternatives were discussed with the patient. The patient agreed to proceed with the procedure and signed the consent. IV was started, and vital signs were stable. Patient was taken to the OR and time out was completed. The patient was placed in the prone position on procedure table and a pillow was placed under the abdomen to reduce lumbar lordosis. The lumbosacral area was prepped and draped in the usual sterile fashion. Critical pause was taken. Vital signs were closely monitored during the procedure. Conscious sedation was used during the procedure to decrease patients anxiety. Lidocaine 1% was used to numb the skin up at the target points that were chosen as follows: For the L--L5 level the target point was at the 6 o'clock position of L-4 pedicle in the Rt oblique view. The correct view was obtained by squaring off the L vertebra on the AP view of fluoroscopy then the C-arm was tilted to the Rt oblique position to an angle at which the superior articular process of the lower vertebra would point to the middle of the pedicle above it at the 6 o'clock position as mentioned above . Then I used 5 inch 22-gauge Quincke spinal needle to get to the target point mentioned above by touching the inferior edge of the L4 pedicle and then walking off the bone and into the superior part of the L4-5 foramen using the lateral view of fluoroscopy. I then injected 1 mL of Isovue contrast dye which showed typical epidurogram around the L4 nerve root and into the epidural space. Then I injected 1 mL of PF lidocaine 1% +10 mg of Decadron. I then turned my attention into doing the right ischial bursa steroid injection under fluoroscopic guidance. AP view of fluoroscopy was used to identify the ischial bursa on the right side I then used 22-gauge 5 inch spinal needle to go through the skin after I localized the skin with lidocaine 1% and to contact the bone of the ischium then I withdrew the needle by 1 or 2 mm and injected 40 mg of Kenalog +4 MLS of preservative free lidocaine 1%. Patient tolerated procedures well,and was transferred to PACU in stable condition.
[2019-03-31 09:40] VITALS: PULSE 62; RESP 18
[2019-03-31 09:57] VITALS: BP 144/87
--- NOTE | 2019-03-31 10:48 | FL ---
Fluoroscopy HISTORY: Pain 15 seconds fluoroscopy time supplied to the referring clinician. 4 intraoperative C-arm images docum ent the procedure. See dictated report from anesthesia.
== END ==
LOC: ORPAIN 07:02
PROVIDERS: ATTEND Anesthesiology
DX: G89.29 Other chronic pain (principal); M70.71 Other bursitis of hip, right hip; M47.26 Other spondylosis with radiculopathy, lumbar region; M46.1 Sacroiliitis, not elsewhere classified; M51.16 Intervertebral disc disorders with radiculopathy, lumbar region; H91.90 Unspecified hearing loss, unspecified ear; Z79.82 Long term (current) use of aspirin; Z79.890 Hormone replacement therapy; Z79.891 Long term (current) use of opiate analgesic; Z79.899 Other long term (current) drug therapy
CPT/HCPCS: 64483; 20610; J2250; J1100; J3301; J3010; Q9966; 99152

== ENCOUNTER → 2019-04-22 | Outpatient (CLI) | payer OTHER ==
[2019-04-22 13:29] VITALS: BP 157/90; PULSE 87; RESP 16
--- NOTE | 2019-04-25 16:03 | P.PN ---
Subjective Progress Note Date: 04/22/19 This is follow-up visit for this 73-year-old with history of chronic neck and lower back pain and traumatic head injury. He has several different pain complaints, recently we have done a right-sided transforaminal epidural steroid injection at L4 5, and right ischial bursa steroid injection, and he reported that he get good pain relief from his buttock pain, and low back pain, currently is complaining of severe low back pain in the lower extremity associated with severe numbness and tingling sensation, or prominent on the right side but he had the symptoms bilaterally. And he feels the pain is burning ,and squeezing, tingling ,in both lower extremities The symptoms is severe excruciating interfering with her quality of life, He continued to use uses Lyrica 150 mg twice a day ,and Cymbalta 60 mg a day ,plus Maud 10 mg 3 times a day as needed for his pain , and Flexeril 5 mg 3 times a day ,and he gets these medications from the [facility]. He is very hard of hearing. He denies any motor or sensory deficit he denies any fever or night sweats. He denies any change in the bone involvement or urination . Objective - Vital Signs Vital signs: Vital Signs Temp Pulse 87 04/22/19 12:51 Resp 16 04/22/19 12:51 BP 157/90 04/22/19 12:51 Pulse Ox - Exam Physical Examinations : -Constitutiona : Cooperative , not in acute distress . -HEENT : nech : supple , no Lymphadenopathy , normal thyroid size . eyes : no ptosis , no icterus, no photophobia . ENT : normal of hearing , normal oropharynx , no Thrush . - Respiratory : Chest clear to auscultations Bilaterally , no wheezing , no Rhonchi . - Cardiovascula : regular rate and rhythem , S1 , S2 , no S3 , no S4. - Gastrointestina : abdomen soft no tenderness , bowel sounds , no organomegally . - Genitourinary : Defferred . - neurologic : Cranial nerve II to XII intact , no focal neurological deffecit . -psychatric : alert , oriented X 3 , appropriate affect , intact judgment and insight . -Lymphatic : no Lymphadenopathy . - musculoskeltal : Lumber spine moter stegnth lower extremities ,thigh and legs 5/5 Right side , 5/5 Left side deep tendon reflexes : normal Knee Jerk , normal ankle Jerk positive lumber facet Loading Test Range of motion of the lumbar spine Flexion 30 degrees, extension 10 degrees strait leg raising test = negative bilaterally . Fabere test positive RT and positive LT . Sever tenderness over the Sacroiliac joint on the R and L sides Gaenslen test positive bilaterally. Seated flexion test positive bilaterally. Tenderness over the right ischial bursa Assessment and Plan Plan: Assessment and plan= chronic low back pain secondary to lumbar degenerative disc disease , lumbar spondylosis with lumbar facet arthropathy . Lumbar radiculopathy , chronic and current use of high-risk medication (opioids) Patient denies any side effects of the current pain medication and the current treatment/medication helping the patient to do activity of daily living , patient continued prescription from the [facility], Patient was counseled not to drive or operate heavy equipment while using narcotic medication, and advised not to use alcohol or any Illicit drugs while using the narcotis. understanding that lack of compliance with any of the above instructions, will likely to cause discharge from, the pain service, not to renew his narcotic prescriptions MAPS Reviwed and it was apropriate . Patient could benefit from lumbar epidural steroid injection under fluoroscopy guidance at L4-L5 or L5-S1 Patient given prescription for Lyrica 200 mg twice a day, and in the future he will get treatment for his medication from the [facility]. She'll continue to use Maud 10/325 every 8 hours when necessary, Cymbalta 60 mg daily, Celebrex 200 mg daily ,and Flexeril 5 mg 3 times a day PQRS Measure Charge Sheet Measure #130: Documentation of Current Meds in Medical Chart: Patient's med ications documented in chart Measure #226: Tobacco Use: Screen & Cessation Intervention: Pt not a tobacco user Measure #111: Pneumonia Vaccination: Pneumococcal vaccine administered or previously received Measure #47: Advance Care Plan: Advance care planning discussed & documented, pt chose/unable to give Measure #412: Opioid Treatment Agreement: No documentation of signed opioid treatment agreement Measure #408: Opioid Therapy Follow-up Evaluation: Patient had NO f/u eval minimum every 3 months during opioid therapy Measure #317: Preventitive Care & Scrn High Bld Press & F/U: Pre-hypertensive or hypertensive BP documented, pt will f/u with PCP Measure #128: Body Mass Index (BMI) Screening & Follow-up: BMI documented ABOVE normal parameters - f/u documented Measure #131: Pain Assessment & Follow-up: Pain positive & plan documented, Follow-up scheduled Measure #431: Unhealthy Alcohol Use Preventative Care & Scrn: Patient not identified as an unhealthy alcohol use , Time with Patient: Less than 30
== END ==
LOC: PNWHC3 11:56
PROVIDERS: ATTEND Specialist
DX: G89.29 Other chronic pain (principal); M51.16 Intervertebral disc disorders with radiculopathy, lumbar region; M47.26 Other spondylosis with radiculopathy, lumbar region; M46.96 Unspecified inflammatory spondylopathy, lumbar region; Z79.899 Other long term (current) drug therapy; Z79.891 Long term (current) use of opiate analgesic
CPT/HCPCS: 99211

== ENCOUNTER 2019-04-27 08:59 | Day surgery (SDC) | payer OTHER ==
[~2019-04-27 08:59] MED LIST changes: -IV FLUID CONTINUATION 1,000 ML IV ONE
[2019-04-27 09:30] VITALS: RESP 16; TEMP 97.1
[2019-04-27 09:42] LABS: Glucose,Whole Blood 77 mg/dL (75-99)
[2019-04-27] MEDS ORDERED: LIDOCAINE 1% 20 ML VIAL (10MG/ML) FOR IV START INTRADERMA ONE (09:42)
--- NOTE | 2019-04-27 10:14 | P.PCN ---
Date of Procedure: 04/27/19 Procedure(s) Performed: PREOPERATIVE DIAGNOSIS: 1- Lumbar radiculopathy 2-Lumbar spondylosis with Facet arthropathy without myelopathy POSTOPERATIVE DIAGNOSIS: 1-Lumber radiculopathy 2-Lumbar spondylosis with Facet arthropathy without myelopathy PROCEDURE 1. Lumbar epidural steroid injection under fluoroscopic guidance at the L5-S1 level. (Fluoroscopy imaging was available in radiology department) 2. Lumbar epidurogram. ANESTHESIA: Local with 1% lidocaine 3 ml and , moderate sedation with intravenous Versed 2 mg ,and fentanyle 100 Mcg EBL: Minimal PROCEDURE INDICATION: The patient with low back pain and radiculitis symptoms unresponsive to conservative treatment. Fluoroscopy was used to optimize visualization of the needle placement and to maximize safety. PROCEDURE DESCRIPTION / TECHNIQUE: The patient was seen and identified in the preoperative area. Risks, benefits, complications including but not limited to infections ,bleeding ,allergic reaction to the medications ,nerve damage and not complete pain releife , and alternatives were discussed with the patient. The patient agreed to proceed with the procedure and signed the consent. IV was started, and vital signs were stable. Patient was taken to the OR and time out was completed. The patient was placed in the prone position on procedure table and a pillow was placed under the abdomen to reduce lumbar lordosis. The lumbosacral area was prepped and draped in the usual sterile fashion.ere closely monitored during the procedure. Conscious sedation was used during the procedure to decrease patients anxiety. Vital signs was monitered during the entire procedure. Using anterior-posterior fluoroscopy, the L5-S1 interlaminar space was identified and the skin over this site was marked and then infiltrated with 1% lidocaine subcutaneously. Subsequently, a 20-gauge Tuohy epidural needle was inserted and advanced toward the epidural space using the ``Loss of resistance technique and guided by AP and lateral fluoroscopy. The correct needle position in the epidural space was verified with the injection of 2 mL of the water soluble contrast dye Isovue 200 contrast and observing an excellent epidurogram with the epidural spread of the dye, after negative aspiration for blood and CSF and in the absence of paresthesias. Again after negative aspiration, a 6 ml mixture containing 80 mg of Depo-medrol , and 2 ml of preservative free Normal Saline, and 2 ml of preservative free lidocaine 1% solution was injected and a washout of epidurogram was seen. Needle was withdrawn intact, skin was cleansed, and bandages were applied. COMPLICATIONS: None DISPOSITION / PLANS: The patient was placed in a supine position and transferred to the recovery area in a stable condition for observation. There was no evidence of lower extremity motor or sensory deficit after the procedure. Patient was discharged from the recovery room after meeting discharge criteria. Home discharge instructions were given to the patient by the staff. The patient was reexamined prior to discharge. The patient will schedule a follow up in the clinic in 2-4 weeks.
[2019-04-27] MEDS ORDERED: IV FLUID CONTINUATION 1,000 ML IV ONE (10:25)
[2019-04-27 10:46] VITALS: BP 143/85; PULSE 66
--- NOTE | 2019-04-27 11:01 | FL ---
Fluoroscopy HISTORY: Pain 9 seconds fluoroscopy time supplied to the referring clinician. 2 intraoperative C-arm images docume nt the procedure. See dictated report from anesthesia.
== END 2019-04-27 10:59 | disposition home or self-care (01) ==
LOC: ORPAIN 08:59
PROVIDERS: ATTEND Specialist
DX: M47.26 Other spondylosis with radiculopathy, lumbar region (principal)
CPT/HCPCS: 62323; J2250; J1030; J3010; Q9966; 99152

== ENCOUNTER 2019-05-12 07:31 | Day surgery (SDC) | payer OTHER ==
[2019-05-12 08:24] VITALS: RESP 18; TEMP 97.5
[2019-05-12] MEDS ORDERED: LIDOCAINE 1% 20 ML VIAL (10MG/ML) FOR IV START INTRADERMA ONE (08:35)
[2019-05-12] MEDS ORDERED: LACTATED RINGERS 1,000 ML IV ONE (08:35)
[2019-05-12] MEDS ORDERED: LACTATED RINGERS 1,000 ML IV SCH (08:41)
--- NOTE | 2019-05-12 09:12 | P.PCN ---
Date of Procedure: 05/12/19 Procedure(s) Performed: PREOPERATIVE DIAGNOSIS: 1- Lumbar radiculopathy 2-Lumbar spondylosis with Facet arthropathy without myelopathy POSTOPERATIVE DIAGNOSIS: 1-Lumber radiculopathy 2-Lumbar spondylosis with Facet arthropathy without myelopathy PROCEDURE 1. Lumbar epidural steroid injection under fluoroscopic guidance at the L5-S1 level. (Fluoroscopy imaging was available in radiology department) 2. Lumbar epidurogram. ANESTHESIA: Local with 1% lidocaine 3 ml and , moderate sedation with intravenous Versed 2 mg ,and fentanyle 100 Mcg EBL: Minimal PROCEDURE INDICATION: The patient with low back pain and radiculitis symptoms unresponsive to conservative treatment. Fluoroscopy was used to optimize visualization of the needle placement and to maximize safety. PROCEDURE DESCRIPTION / TECHNIQUE: The patient was seen and identified in the preoperative area. Risks, benefits, complications including but not limited to infections ,bleeding ,allergic reaction to the medications ,nerve damage and not complete pain releife , and alternatives were discussed with the patient. The patient agreed to proceed with the procedure and signed the consent. IV was started, and vital signs were stable. Patient was taken to the OR and time out was completed. The patient was placed in the prone position on procedure table and a pillow was placed under the abdomen to reduce lumbar lordosis. The lumbosacral area was prepped and draped in the usual sterile fashion.ere closely monitored during the procedure. Conscious sedation was used during the procedure to decrease patients anxiety. Vital signs was monitered during the entire procedure. Using anterior-posterior fluoroscopy, the L5-S1 interlaminar space was identified and the skin over this site was marked and then infiltrated with 1% lidocaine subcutaneously. Subsequently, a 20-gauge Tuohy epidural needle was inserted and advanced toward the epidural space using the ``Loss of resistance technique and guided by AP and lateral fluoroscopy. The correct needle position in the epidural space was verified with the injection of 2 mL of the water soluble contrast dye Isovue 200 contrast and observing an excellent epidurogram with the epidural spread of the dye, after negative aspiration for blood and CSF and in the absence of paresthesias. Again after negative aspiration, a 6 ml mixture containing 80 mg of Depo-medrol , and 2 ml of preservative free Normal Saline, and 2 ml of preservative free lidocaine 1% solution was injected and a washout of epidurogram was seen. Needle was withdrawn intact, skin was cleansed, and bandages were applied. COMPLICATIONS: None DISPOSITION / PLANS: The patient was placed in a supine position and transferred to the recovery area in a stable condition for observation. There was no evidence of lower extremity motor or sensory deficit after the procedure. Patient was discharged from the recovery room after meeting discharge criteria. Home discharge instructions were given to the patient by the staff. The patient was reexamined prior to discharge. The patient will schedule a follow up in the clinic in 2-4 weeks.
[2019-05-12] MEDS ORDERED: IV FLUID CONTINUATION 1,000 ML IV ONE ×2 (09:19)
--- NOTE | 2019-05-12 09:21 | FL ---
EXAMINATION TYPE: FL guided pain mgmt statistic DATE OF EXAM: 05/12/2019 HISTORY: Flouroscopy time 14 seconds of fluoroscopy provided. IMPRESSION: 1. Fluoroscopy time.
[2019-05-12 09:56] VITALS: BP 145/77; PULSE 77
== END 2019-05-12 10:20 | disposition home or self-care (01) ==
LOC: ORPAIN 07:31
PROVIDERS: ATTEND Specialist
DX: M47.26 Other spondylosis with radiculopathy, lumbar region (principal); M51.16 Intervertebral disc disorders with radiculopathy, lumbar region; I25.10 Atherosclerotic heart disease of native coronary artery without angina pectoris
CPT/HCPCS: 62323

== ENCOUNTER → 2019-06-03 | Outpatient (CLI) | payer OTHER ==
[2019-06-03 12:22] VITALS: BP 125/79; PULSE 66; RESP 16
--- NOTE | 2019-06-03 15:05 | P.PAINPG ---
Subjective Progress Note Date: 06/03/19 This is follow-up visit for this 73-year-old with history of chronic neck and lower back pain and traumatic head injury. Most recently he has had 2 intralaminar steroid injections, he states that his pain down the right leg is essentially resolved, however he has pain down the left leg which significantly inhibits quality of his life. He describes the pain as burning, it starts in his low back radiates down his thigh to the anterior knee, after the knee the pain in golf same prior leg. Unfortunately he has had around 4 epidural steroid injections within the past year. Thus he has had a good amount of steroid injections this year. [facility] [place] [facility] He is ea anh to have the left side taking care of, however given his steroid load like to defer at this point. Objective - Vital Signs Vital signs: Vital Signs Temp Pulse 66 06/03/19 12:17 Resp 16 06/03/19 12:17 BP 125/79 06/03/19 12:17 Pulse Ox Intake & Output 06/02/19 06/03/19 06/03/19 18:59 06:59 18:59 Weight 105.233 kg - Exam Vital Signs: Reviewed in EMR GENERAL: Well appearing obese, in no acute distress, PSYCH: Mood and affect is appropriate. Awake, alert, and oriented SKIN: Skin color, texture, turgor normal, no rashes or lesions HEENT: Normocephalic, atraumatic. EOM intact CV: No pedal edema RESP: Respirations are unlabored, no audible wheezing GI: Abdomen non-distended MUSCULOSKELETAL: Bilateral upper and lower extremity strength is normal and symmetric. No atrophy or tone abnormalities are noted. Lumbar spine: Some pain to palpation over the lumbar spine and paraspinous muscles. Extremities: Peripheral joint ROM is full and pain free without obvious instability or laxity in all four extremities. No edema or skin discolorations noted. Gait: Gait is anantalgic NEUR: Bilateral upper and lower extremity coordination and muscle stretch reflexes are physiologic and symmetric. No loss of sensation is noted. Assessment and Plan Assessment: Assessment: 1. Lumbar radiculopathy without myelopathy 2. Lumbar spondylosis 3.Obesity Plan: 1. Explanation: I spoke to him about the difference between a transforaminal epidural injection and interlaminar steroid injection. I also explained to him the risk of multiple steroid injections especially in a short period of time. Thus we agreed that we should wait at least 2 months before his next steroid injection which would be in August. Of note [facility] does [facility]. 2. Opioid agreement: None 3. Counseling: The patient was counseled extensively on BODY MASS INDEX, EXERCISE. Specifically, the patient was instructed regarding the importance of weight control, and exercise in the context of both chronic pain and overall health. 4. Procedures: Left L4-L5 transforaminal steroid injection, if this is not resulting in good relief can consider left L5-S1 transforaminal epidural steroid injection 5. Consultations: None 6. Investigations: Computed tomography scan reviewed, he cannot have MRIs as he has a plate. 7. Medications: Encouraged patient to have discussions with primary care physician at the [facility] 8. Disposition: He will have his left-sided transforaminal injection in August or after , PQRS Measure Charge Sheet Measure #226: Tobacco Use: Screen & Cessation Intervention: Pt not a tobacco user Measure #111: Pneumonia Vaccination: Pneumococcal vaccine administered or previously received Measure #47: Advance Care Plan: Advance care planning discussed & documented, pt chose/unable to give Measure #131: Pain Assessment & Follow-up: Pain positive & plan documented, Follow-up scheduled PQRS Narrative: Smoking Status Never smoker Blood Pressure 125/79 Pain Intensity [Bilateral 4 Lower Back] Scale Used Numeric (1 - 10) Hx Alcohol Use (MH) No Home Medications: Ambulatory Orders Celecoxib [CeleBREX] 200 mg PO DAILY 12/17/17 Cyclobenzaprine [Flexeril] 5 mg PO TID 12/17/17 DULoxetine HCL [Cymbalta] 60 mg PO DAILY 12/17/17 Ezetimibe [Zetia] 10 mg PO DAILY 12/17/17 Levothyroxine Sodium [Synthroid] 50 mcg PO HS 12/17/17 [place]-3 Acid Ethyl Esters [Lovaza] 1 gm PO BID 12/17/17 Rosuvastatin [Crestor] 10 mg PO DAILY 12/17/17 Cholecalciferol [Vitamin D3] 1,000 unit PO DAILY 03/06/18 Cinnamon Bark [Cinnamon] 500 mg PO DAILY 03/06/18 Folic Acid 1 mg PO DAILY 03/06/18 Garlic 1 each PO DAILY 03/06/18 Magnesium 800 mg PO DAILY 03/06/18 Turmeric Root Extract [Turmeric] 400 mg PO DAILY 03/06/18 Vitamin B Complex 1 each PO DAILY 03/06/18 Docusate [Colace] 100 mg PO DAILY PRN 03/16/18 HYDROcodone/APAP 10-325MG [[place] 10-325] 1 tab PO TID PRN 03/16/18 Aspirin EC [Ecotrin Low Dose] 162 mg PO DAILY 08/04/18 Ubidecarenone [Co Q-10] 200 mg PO DAILY 08/04/18 Psyllium Husk 100% [Metamucil Packet] 6 gm PO DAILY 03/04/19 predniSONE 2 mg PO DIRECTED 03/29/19 Pregabalin [Lyrica] 200 mg PO BID 04/22/19 Controlled Substance Measures - Controlled Substance Measures Is patient prescribed a controlled substance at discharge?: No
== END | disposition home or self-care (01) ==
LOC: PNWHC3 11:15
PROVIDERS: ATTEND Student in an Organized Health Care Education/Training Program
DX: G89.29 Other chronic pain (principal); M47.26 Other spondylosis with radiculopathy, lumbar region; E66.9 Obesity, unspecified; Z68.31 Body mass index [BMI] 31.0-31.9, adult; Z79.1 Long term (current) use of non-steroidal anti-inflammatories (NSAID); Z79.82 Long term (current) use of aspirin; Z79.899 Other long term (current) drug therapy
CPT/HCPCS: 99211

== ENCOUNTER → 2022-02-27 | Outpatient (CLI) | payer OTHER ==
[2022-02-27 14:00] VITALS: BP 144/75; PULSE 76; RESP 16; TEMP 97.6
--- NOTE | 2022-02-27 14:17 | P.PAINPG ---
PQRS Measure Charge Sheet Comment: HISTORY OF PRESENT ILLNESS: A 76 yr old male with at side as a referral from the [facility] with a history of severe and chronic low back pain secondary to lumbar degenerative disc diseases and lumbar spondylosis with facet arthropathy presents today for evaluation. Patient states his lower back pain is localized lower aspects of his lumbar spine, 5 out of 10 in intensity, burning in character, repeat EEG of pain to the bilateral lower extremities, right side greater than left. Pain escalates as high as 10 out of 10 intensity with bending and inactivity. Pain is relieved with medications, ice, heat, physical therapy which provokes pain, chiropractic treatments but ceased to continue as his therapist retired, daily home stretching regimen, use of a lumbar support brace, use of a massage chair device at home, repositioning and rest. PMH: Hypothyroidism, MDD, HTN, Hyperlipidemia, OA PSH: Defibrillator, hernia repair 12, cancer 2, PA 2, CABG, LESIs, Cranial Steel Plate SH: Negative x 3 FH: Non contributory All: NKDA Meds: Seelist REVIEW OF ORGAN SYSTEMS: CONSTITUTIONAL: No fevers or chills. No recent weight loss. HEENT: No visual acuity loss, eye pain, difficulties with hearing. No nosebleeds. No difficulty swallowing. RESPIRATORY: Denies any troubles with breathing or dyspnea on exertion. CARDIOVASCULAR: Denies any chest pain, palpitations, or recent heart attacks. GASTROINTESTINAL: Denies fatty food intolerance. Has change in bowel habits and gas bloat. GENITOURINARY: Denies any blood in urine. Has increased urinary frequency. NEUROLOGICAL: + numbness and tingling along the distal extremities. No seizure disorders or headaches. MUSCULOSKELETAL: + back pain SKIN: No skin cancer. No rash. PSYCHIATRIC: Denies current depression or suicidal thoughts. ENDOCRINE: Denies current thyroid disorders. Denies any blood sugar glucose intolerance. HEME/LYMPHATIC: Denies any lumps and bumps around the neck. History of deep venous thrombosis. ALLERGY/IMMUNOLOGY: No immunoglobulin therapy. No immune deficiencies. BREAST: Denies current breast lumps, pain or nipple discharge. Physical Examinations : Constitutional : Cooperative , not in acute distress . HEENT: Neck supple. No Lymphadenopathy. Normal thyroid size . Eyes no ptosis , no icterus, no photophobia . Hearing intact. Normal oropharynx. No Thrush. Respiratory : Chest clear to auscultations bilaterally. No wheezing. No rhonchi. Cardiovascular : Regular rate and rhythm , S1 / S2. No S3 . No S4. Gastrointestinal : Abdomen soft. No tenderness. Bowel sounds x 4. No organomegaly . Genitourinary : Deferred. Neurologic : Cranial nerve II to XII intact. No focal neurological deficits. Psychiatric : alert & oriented x 3. Matching mood & appropriate affect. Judgment & insight intact. Lymphatic No Lymphadenopathy. Musculoskeletal : Cervical Spine Motor strength in the deltoid and biceps: Normal right side. Normal Left side Motor strength biceps and the wrist extensors: Normal right side . Normal left side Motor strength in the triceps muscle: Normal right side. Normal left side Deep tendon reflexes: Normal at the biceps. Normal at Brachioradialis. Normal at triceps Cervical facet loading test: positive bilaterally Spurling test: positive bilaterally Neck distraction test: positive bilaterally Naida sign: positive bilaterally Lumbar spine Motor strength lower extremities ,thigh and legs 5/5 Right side , 5/5 Left side Deep tendon reflexes : Normal Knee Jerk. Normal Ankle Jerk Vertebral body tenderness over Lumbar facet Loading Test: positive Right / positive Left Range of motion of the lumbar spine Flexion 30 degrees, extension 10 degrees Straight Leg Raise test: Left/ Right positive at degree Sophie test: positive right / positive left. Severe tenderness over the Sacroiliac joint on the Right / Left sides Gaenslen test: positive bilaterally Seated flexion test: positive nir aterally. Sacral spine : Severe tenderness over the Sacroiliac joint: right side / left side Range of motion: Flexion of the lumbar spine <60 degrees Range of motion: Extension of the lumbar spine <20 degrees Gaenslen's Test positive Niels's Test positive Sophie test: positive right side > left side Thigh Thrust Test R> L BL Sacral Thrust Test Imaging: Imaging received from [facility] very blurry Assessment/ Plan : Sacroiliitis Recommendation of BL SI joint injection. may need a series, every 3 mo , for optimal pain relief. Risks, benefits of procedure discussed and patient verbalized understanding. Admits to aspirin or anti- coagulant use. Denies medical history of diabetes. Protocol for discontinuation/ continuation of medications lucero procedure discussed. CT Scan without contrast of the Lumbar spine re: M51.36 All questions answered. I have spent greater than 50 minutes on patient care today. Dr Emerson was available by phone for the evaluation of this patient. The time was used to review the medical records including relevant urine studies and Prescription history (MAPs), review of the available imaging, evaluation and examination of the patient, coordination of care with the medical staff and if applicable referring physicians, as well as creation of the medical record - Pain Location Lower Back Non-Pharmacological Interventions: Chiropractic Treatment, Heat, Home Exercise, Ice, Massage, Physical Therapy, Position/Reposition, Stretching Pharmacological Interventions: PRN Medication PQRS Narrative: Smoking Status Never smoker Hx Alcohol Use (MH) No Home Medications: Ambulatory Orders Celecoxib [CeleBREX] 200 mg PO DAILY 12/17/17 Cyclobenzaprine [Flexeril] 5 mg PO TID 12/17/17 DULoxetine HCL [Cymbalta] 60 mg PO DAILY 12/17/17 Ezetimibe [Zetia] 10 mg PO DAILY 12/17/17 Levothyroxine Sodium [Synthroid] 50 mcg PO HS 12/17/17 [place]-3 Acid Ethyl Esters [Lovaza] 1 gm PO BID 12/17/17 Rosuvastatin [Crestor] 10 mg PO DAILY 12/17/17 Cholecalciferol [Vitamin D3] 1,000 unit PO DAILY 03/06/18 Cinnamon Bark [Cinnamon] 500 mg PO DAILY 03/06/18 Folic Acid 1 mg PO DAILY 03/06/18 Garlic 1 each PO DAILY 03/06/18 Magnesium 800 mg PO DAILY 03/06/18 Turmeric Root Extract [Turmeric] 400 mg PO DAILY 03/06/18 Vitamin B Complex 1 each PO DAILY 03/06/18 Docusate [Colace] 100 mg PO DAILY PRN 03/16/18 HYDROcodone/APAP 10-325MG [[place] 10-325] 1 tab PO TID PRN 03/16/18 Aspirin EC [Ecotrin Low Dose] 162 mg PO DAILY 08/04/18 Ubidecarenone [Co Q-10] 200 mg PO DAILY 08/04/18 Psyllium Husk 100% [Metamucil Packet] 6 gm PO DAILY 03/04/19 predniSONE 2 mg PO DIRECTED 03/29/19 Pregabalin [Lyrica] 200 mg PO BID 04/22/19 Controlled Substance Measures - Controlled Substance Measures Is patient prescribed a controlled substance at discharge?: No
== END ==
LOC: PNWHC3 12:53
PROVIDERS: ATTEND Specialist
DX: M46.1 Sacroiliitis, not elsewhere classified (principal); E03.9 Hypothyroidism, unspecified; I10 Essential (primary) hypertension; E78.5 Hyperlipidemia, unspecified; M19.90 Unspecified osteoarthritis, unspecified site; M51.36 Other intervertebral disc degeneration, lumbar region; F41.9 Anxiety disorder, unspecified; I25.10 Atherosclerotic heart disease of native coronary artery without angina pectoris; F43.10 Post-traumatic stress disorder, unspecified
CPT/HCPCS: 99211

== ENCOUNTER → 2022-04-12 | Outpatient (CLI) | payer OTHER ==
--- NOTE | 2022-04-12 14:27 | CT ---
EXAMINATION TYPE: CT lumbar spine wo con CT DLP: 1616.6 mGycm, Automated exposure control for dose reduction was used. DATE OF EXAM: 04/12/2022 2:01 PM COMPARISON: CT abdomen pelvis 03/18/2019. CLINICAL INDICATION:Male, 76 years old with history of M51.36 INTERVERTEBRAL DISC DEGENERATION, Low b ack pain. TECHNIQUE: Multiple axial images were obtained from the midportion of T11 through the sacroiliac nesha nts. Soft tissue and bone windows in coronal and sagittal planes were obtained and reviewed. FINDINGS: Alignment: There are 5 lumbar type vertebral bodies within normal alignment. Bone: No evidence of fracture is identified. Multilevel disc degeneration changes are seen throughou t the spine. Degeneration changes with bridging osteophytes of the sacroiliac joints. Discs: T12-L1: No spinal canal or neural foraminal stenosis is identified. L1-L2: Facet joint arthropathy, osteophytes and disc bulging result in mild spinal canal stenosis and mild bilateral neural foraminal stenosis. L2-L3: Facet joint arthropathy, osteophytes and disc bulging result in moderate spinal canal stenosis and mild bilateral neural foraminal stenosis. L3-L4: Facet joint arthropathy, osteophytes and disc bulging result in mild spinal canal stenosis and mild bilateral neural foraminal stenosis. L4-L5: Facet joint arthropathy, osteophytes and disc bulging result in severe spinal canal stenosis a nd severe right and mild left neural foraminal stenosis. L5-S1: Facet joint arthropathy, osteophytes and disc bulging result in mild spinal canal stenosis and moderate bilateral neural foraminal stenosis. Other: Scattered clonic diverticula are present. Atherosclerosis of the arterial vasculature. IMPRESSION: 1. No evidence of fracture of the lumbar spine. 2. Multilevel disc degeneration changes with multilevel degeneration resulting in severe spinal canal stenosis at L4-L5 with varying degrees of neural foraminal stenosis worse at right L4-L5 with severe neural foraminal stenosis.
== END | disposition home or self-care (01) ==
LOC: RADCTMAIN 13:32
PROVIDERS: ATTEND Specialist
DX: M51.36 Other intervertebral disc degeneration, lumbar region (principal); M48.061 Spinal stenosis, lumbar region without neurogenic claudication; M99.73 Connective tissue and disc stenosis of intervertebral foramina of lumbar region
CPT/HCPCS: 72131

== ENCOUNTER → 2022-05-15 | Outpatient (CLI) | payer OTHER ==
[2022-05-15 12:55] VITALS: BP 97/65; PULSE 63; RESP 18; TEMP 98.4
--- NOTE | 2022-05-15 13:52 | P.PN ---
Subjective Progress Note Date: 05/15/22 This is follow up visit for this 76 years old male with a history of severe and chronic low back pain, is diagnosed with lumbar spondylosis with lumbar facet arthropathy and degenerative disc disease and bilateral sacroiliitis, recently we have done bilateral sacroiliac joint steroid injection and he reported that he had no benefit from it, more than 3 years ago we have done are a feeling of the medial branch lumbar area and patient reported that he had more than 6 months relief from it, it is complaining of severe low back pain with radiation to the posterior aspect of his lower extremity bilaterally, pain increases with any activity . Pain escalates as high as 10 out of 10 intensity with bending and inactivity. Pain is relieved with medications, ice, heat, physical therapy which provokes pain, chiropractic treatments but ceased to continue as his therapist retired, daily home stretching regimen, use of a lumbar support brace, use of a massage chair device at home, repositioning and rest. Physical Examinations : -Constitutiona : Cooperative , not in acute distress . -HEENT : nech : supple , no Lymphadenopathy , normal thyroid size . : eyes : no ptosis , no icterus, no ph otophobia . - neurologic : Cranial nerve II to XII intact , no focal neurological deffecit . -psychatric : alert , oriented X 3 , appropriate affect , intact judgment and insight . -Lymphatic : no Lymphadenopathy . - musculoskeltal : Lumber spine moter stegnth lower extremities ,thigh and legs 5/5 Right side , 5/5 Left side deep tendon reflexes : normal Knee Jerk , normal ankle Jerk lumber facet Loading Test =positive Right , positive Left Range of motion of the lumbar spine Flexion 30 degrees, extension 10 degrees strait leg raising test = positive at 45 degree Fabere test= positive Right , and positive LT . Sever tenderness over the Sacroiliac joint on the Right , and Left sides Gaenslen test= positive right ,and po sitive left . Seated flexion test= positive right ,and positive Left . Distraction test= positive bilaterally Sacroiliac compression test= positive bilaterally. MRI of the lumbar spine= multilevel lumbar degenerative disc disease and multilevel lumbar facet arthropathy and there is foraminal stenosis and spinal stenosis. Assessment and plan= chronic low back pain secondary to lumbar degenerative disc disease , lumbar spondylosis with lumbar facet arthropathy . Bilateral sacroiliitis Patient had no benefit from sacroiliac joint steroid injections Patient denies any side effects of the current pain medication and the current treatment/medication helping the patient to do activity of daily living , Diagnoses, prognosis, treatment options, including but not limited to physical therapy, medication management, interventional therapies, and surgery, were discussed with the patient All the questions answered Patient had good benefit from RFA of the medial branch lumbar area done more than 3 years ago he could benefit from repeat RFA medial branch lumbar area at L4 5 and L5-S1 bilaterally. Objective - Vital Signs Vital signs: Vital Signs Temp 98.4 F 05/15/22 12:45 Pulse 63 05/15/22 12:45 Resp 18 05/15/22 12:45 BP 97/65 05/15/22 12:45 Pulse Ox 97 05/15/22 12:45 FiO2 Intake & Output 05/14/22 05/15/22 05/15/22 18:59 06:59 18:59 Weight 120.202 kg
== END ==
LOC: PNWHC3 11:44
PROVIDERS: ATTEND Specialist
DX: M51.36 Other intervertebral disc degeneration, lumbar region (principal); M47.816 Spondylosis without myelopathy or radiculopathy, lumbar region; G89.29 Other chronic pain; M46.1 Sacroiliitis, not elsewhere classified; Z88.1 Allergy status to other antibiotic agents
CPT/HCPCS: 99211

== ENCOUNTER 2022-06-28 10:57 | Day surgery (SDC) | payer OTHER ==
[2022-06-28 11:31] VITALS: TEMP 96
[2022-06-28] MEDS ORDERED: fentaNYL (PF) 50 MCG/ML 2 ML AMP ONE (12:00)
[2022-06-28] MEDS ORDERED: MIDAZOLAM 2 MG/2 ML VIAL ONE (12:00)
[2022-06-28] MEDS ORDERED: ROPIVACAINE 5 MG/ML 20 ML AMPULE ONE (12:01)
[2022-06-28] MEDS ORDERED: TRIAMCINOLONE ACETONIDE 40 MG/ML 1 ML VIAL ONE (12:01)
--- NOTE | 2022-06-28 12:43 | P.PCN ---
Date of Procedure: 06/28/22 Description of Procedure: Pre- and Post-operative Diagnosis: Lumbar facet arthropathy, and lumbar spon dylosis without myelopathy. Procedure: Bilateral L4-5 radiofrequency thermocoagulation of medial branch under fluoroscopic guidance Bilateral L5-S1 dorsal ramus radiofrequency thermocoagulation under fluoroscopic guidance Surgeon: Babak Lynn Anesthesia: Local: 1% Lidocaine, IV sedation : Midazolam 2 mg, and fentanyl 100 micrograms. Complications: None Estimated blood loss: None. Specimen removed: None Fluoroscopic image: Saved to patient electronic medical records. note: Spoke to [facility] [facility] regarding cardiac defibrillator and lumbar radiofrequency ablation. Magnet placed over the defibrillator IPG, grounding pad used in lower extremity. Before discharging homedefibrillator interrogated in the recovery room. Indications for Procedure: The patient is well known to pain clinic for his chronic low back pain management. The lumbar facet loading test was positive with a clinical diagnosis of lumbar facet arthropathy. Patient had marked decrease in pain after the diagnostic medial branch procedure. Came here for radiofrequency ablation for longer pain relief. PROCEDURE DESCRIPTION: The patient was seen and identified in the preoperative area. Risks, benefits, complications, and alternatives were discussed with the patient. The patient agreed to proceed with the procedure and signed the consent. IV was started. Vital signs were stable. Patient was taken to the procedure room and timeout was completed. The patient was placed in the prone position on procedure table and a pillow was placed under the abdomen to reduce lumbar lordosis. The lumbosacral area was prepped and draped in the usual sterile fashion. Critical pause was taken. Vital signs were closely monitored during the procedure. The fluoroscopic camera was placed in the anteroposterior position to identify the junction of superior articular process and its corresponding injection with its transverse process of Right side L4, L5, S1, which were anesthetized with 1% lidocaine. We used 18-gauge 100-mm curved, sharp radiofrequency cannula with 10-mm active tip for the procedure. The first cannula was guided by fluoroscopy to the S1 superior articular process and its corresponding junction with its ala. The second cannula was guided by fluoroscopy into the L5 superior articular process and its corresponding junction with its transverse process and pedicle. The third cannula was guided by fluoroscopy into the L4 SAP and its corresponding junction with its transverse process and its pedicle. After confirmation of needle tip position on oblique view, each site underwent motor testing at 2 Hz and 0 to 2.5 volts, and there was good motor stimulation in the back and no radicular symptoms or paresthesias. After confirmation of motor testing, 0.5 mL of block solution injected at each site . Block solution contained 4 mL of 0.5% ropivacaine preservative free mixed with 40 MG of Kenalog. At this time, each site was ablated using continuous radiofrequency mode at 80 degrees Celsius for 90 seconds at each level. At the end of the procedure, each needle was retracted approximately 1 cm and the skin was infiltrated with 0.5% ropivacaine preservative free 1 ml at each site. Entire procedure repeated on the left side. Skin was cleansed and bandages were applied. Disposition : The patient tolerated the procedure very well. The patient was transferred to the recovery room and remained stable until discharged home. The patient was given detailed discharge instructions for infection, bleeding, and increased pain at the injection site, and was advised to seek immediate medical attention should significant side effects develop. The patient will be scheduled with Pain Clinic within 4 weeks.
--- NOTE | 2022-06-28 13:09 | FL ---
Intraoperative/procedural fluoroscopic services were provided. Total fluoroscopy time is 11 seconds w ith a total of 8 submitted images to PACS. Please see the operative/procedural note for further detai ls.
[2022-06-28] MEDS ORDERED: IV FLUID CONTINUATION 1,000 ML IV ONE (13:18)
[2022-06-28] MEDS ORDERED: fentaNYL (PF) 50 MCG/ML 2 ML AMP IV ONE (13:30)
[2022-06-28 15:26] VITALS: BP 122/68; PULSE 62; RESP 16
== END 2022-06-28 14:50 | disposition home or self-care (01) ==
LOC: ORPAIN 10:57
DX: M47.816 Spondylosis without myelopathy or radiculopathy, lumbar region (principal); E78.00 Pure hypercholesterolemia, unspecified; I25.10 Atherosclerotic heart disease of native coronary artery without angina pectoris; F43.89 Other reactions to severe stress; I25.2 Old myocardial infarction; I25.810 Atherosclerosis of coronary artery bypass graft(s) without angina pectoris; G62.9 Polyneuropathy, unspecified; Z88.1 Allergy status to other antibiotic agents; Z79.899 Other long term (current) drug therapy; Z98.890 Other specified postprocedural states
CPT/HCPCS: 64635; 64636; J2250; J3301; J3010; J2795

== ENCOUNTER → 2022-12-19 | Outpatient (CLI) | payer OTHER ==
--- NOTE | 2022-12-20 19:23 | US ---
EXAMINATION TYPE: US arterial LE single level DATE OF EXAM: 12/19/2022 1:08 PM CLINICAL HISTORY: R53.1 WEAKNESS. Weakness and pain in legs. Hx of 4 heart attacks, 6 cardiac stents placed. Discoloration within bilateral great toe. History of: Smoker: No Hypertension: No Diabetic: No Hyperlipidemia: Yes TIA/CVA: No Previous Vascular Surgery: Yes, cardiac stents CAD: CT: Yes x4 Vascular Ulcers: No Claudication: Gangrene: Doppler Waveforms: Right: Biphasic, monophasic in the right digit Left: Biphasic, monophasic in the left digit Pulse Volume Recording: Pressure Gradients: Right Brachial Pressure: 107 Left Brachial Pressure: 104 Ankle-Brachial Indices: Right: 1.17 Left: 1.17 Toe Brachial Indices: Right: 1.04 Left: 0.92 IMPRESSION: Normal ankle-brachial indices and waveforms within the bilateral lower extremity arterie s with monophasic bilateral waveforms involving the digits. Cannot exclude peripheral arterial diseas e in the digits.
== END | disposition home or self-care (01) ==
LOC: RADUSWWP 11:49
DX: E78.5 Hyperlipidemia, unspecified (principal); R53.1 Weakness
CPT/HCPCS: 93922